=== PATIENT | female | born 1960 | race Caucasian/White ===

== ENCOUNTER 2018-06-27 23:02 | Emergency (ER) | payer MEDICAID ==
[~2018-06-27] VITALS: Ht 172.7 cm; Wt 60.6 kg
[2018-06-27 23:09] VITALS: BP 147/105
[2018-06-27] MEDS ORDERED: acetaminophen w/codeine (30MG) #3 tablet PO ONE (23:30)
[2018-06-27] MEDS ORDERED: ACET-3067 PO (23:57)
== END 2018-06-28 00:14 | disposition home or self-care (01) ==
LOC: ER 23:03
DX: S20.212A Contusion of left front wall of thorax, initial encounter (principal); Z88.0 Allergy status to penicillin; Z88.1 Allergy status to other antibiotic agents; Z90.710 Acquired absence of both cervix and uterus; W01.0XXA Fall on same level from slipping, tripping and stumbling without subsequent striking against object, initial encounter; Y93.89 Activity, other specified; Y92.89 Other specified places as the place of occurrence of the external cause; Y99.8 Other external cause status
CPT/HCPCS: 71101; 99284

== ENCOUNTER 2019-01-23 17:50 | Emergency (ER) | payer MEDICAID ==
[2019-01-23] MEDS ORDERED: FLUP5TAB PO (18:35)
[2019-01-23] MEDS ORDERED: OXCA300T16 PO (18:35)
[2019-01-23] MEDS ORDERED: RISP4TAB2 PO (18:35)
[2019-01-23] MEDS ORDERED: OXCA600T9 PO (18:35)
[2019-01-23] MEDS ORDERED: DOCU250C4 PO (18:35)
[2019-01-23] MEDS ORDERED: HYDR-3686 PO (20:02)
[2019-01-23 20:22] VITALS: BP 160/98
== END 2019-01-23 20:25 | disposition home or self-care (01) ==
LOC: ER 17:52
DX: F41.9 Anxiety disorder, unspecified (principal); F31.9 Bipolar disorder, unspecified; F20.9 Schizophrenia, unspecified; F17.200 Nicotine dependence, unspecified, uncomplicated; Z79.899 Other long term (current) drug therapy; Z88.0 Allergy status to penicillin; Z88.1 Allergy status to other antibiotic agents; Z88.6 Allergy status to analgesic agent; Z90.710 Acquired absence of both cervix and uterus
CPT/HCPCS: 99284

== ENCOUNTER 2019-03-06 20:54 | Emergency (ER) | payer MEDICAID ==
[~2019-03-06] VITALS: Ht 172.7 cm; Wt 63.0 kg
[~2019-03-06 20:54] MED LIST: DOCU250C4 PO; FLUP5TAB PO; OXCA300T16 PO; OXCA600T9 PO; RISP4TAB2 PO
[2019-03-06 21:20] VITALS: BP 160/100
[2019-03-06] MEDS ORDERED: sulfamethoxazole/trimethoprim DS (800/160mg) tablet PO ONE (22:05)
[2019-03-06] MEDS ORDERED: SULF1TAB49 PO (22:05)
== END 2019-03-06 22:18 | disposition home or self-care (01) ==
LOC: ER 20:55
DX: L03.032 Cellulitis of left toe (principal); Z90.710 Acquired absence of both cervix and uterus; Z88.0 Allergy status to penicillin; Z88.1 Allergy status to other antibiotic agents; Z88.6 Allergy status to analgesic agent; Z79.899 Other long term (current) drug therapy
CPT/HCPCS: 73610; 99284

== ENCOUNTER 2020-11-12 19:21 | Emergency (ER) | payer MEDICAID ==
[~2020-11-12] VITALS: Ht 172.7 cm; Wt 63.6 kg
[~2020-11-12 19:21] MED LIST changes: -DOCU250C4 PO; +DOCU250C96 PO; -FLUP5TAB PO; +FLUP5TAB4 PO; -RISP4TAB2 PO; +RISP4TAB73 PO
[2020-11-12 19:24] VITALS: BP 136/95
[2020-11-12] MEDS ORDERED: hydrOXYzine 10 MG tablet PO STA (19:48)
== END 2020-11-12 20:32 | disposition home or self-care (01) ==
LOC: ER 19:21
DX: F41.0 Panic disorder [episodic paroxysmal anxiety] (principal); F31.9 Bipolar disorder, unspecified; F20.9 Schizophrenia, unspecified; Z88.0 Allergy status to penicillin; Z88.1 Allergy status to other antibiotic agents; Z88.6 Allergy status to analgesic agent; Z79.899 Other long term (current) drug therapy
CPT/HCPCS: 99283

== ENCOUNTER 2021-06-14 09:48 | Emergency (ER) | payer MEDICAID ==
[~2021-06-14] VITALS: Ht 172.7 cm; Wt 65.9 kg
--- NOTE | 2021-06-14 11:11 | NUR ---
pt screaming in lobby. pt states she thirsty and hasnt drank water in 2 days. Showed pt where water fountain is. pt ambulated 50 feet without any assistance was able to drink water and then demanded to have medications. educated pt on waiting for a room and that she has her home medications with her.
--- NOTE | 2021-06-14 11:13 | NUR ---
Rosalva Lovett [phone], friend will pick her up
--- NOTE | 2021-06-14 11:54 | NUR ---
Pt is awake and alert. She has not taken her psych medications for 3 days. She is occationally tearful and is "worried that you will do something bad to me."
--- NOTE | 2021-06-14 12:18 | NUR ---
Pt repeats phrases rapidly over and over. "I feel scared."
--- NOTE | 2021-06-14 12:55 | NUR ---
Pt given instructions. Called her friend, Rosalva for a ride home.
[2021-06-14 13:15] VITALS: BP 110/81
== END 2021-06-14 13:16 | disposition home or self-care (01) ==
LOC: ER 09:49
DX: F41.9 Anxiety disorder, unspecified (principal); F20.9 Schizophrenia, unspecified; F31.9 Bipolar disorder, unspecified; Z90.710 Acquired absence of both cervix and uterus; Z88.0 Allergy status to penicillin; Z88.1 Allergy status to other antibiotic agents; Z88.8 Allergy status to other drugs, medicaments and biological substances; Z79.899 Other long term (current) drug therapy
CPT/HCPCS: 99283

== ENCOUNTER 2021-11-25 11:01 | Emergency (ER) | payer MEDICAID ==
[~2021-11-25] VITALS: Ht 172.7 cm; Wt 57.3 kg
[~2021-11-25 11:01] MED LIST changes: -DOCU250C96 PO; -OXCA600T9 PO
--- NOTE | 2021-11-25 11:52 | NUR ---
Patient's caregiver, Rosalva at bedside.
--- NOTE | 2021-11-25 12:54 | NUR ---
Patient's caregiver at bedside states patient appears to be having panic attack.
--- NOTE | 2021-11-25 12:54 | NUR ---
Patient moaning in bed and states abdomen hurts; ER provider notified.
--- NOTE | 2021-11-25 13:26 | NUR ---
Patient assisted to restroom; stating she feels "weak," however speed-walks with great strength to toilet when several feet away.
[2021-11-25] MEDS ORDERED: normal saline 1000ML IV soln IVB ONE ×2 (13:35→15:15)
[2021-11-25] MEDS ORDERED: ondansetron/PF 4mg/2ml inj IV ONE (13:35)
[2021-11-25 13:46] LABS: URINE HCG NEGATIVE (NEG)
[2021-11-25 13:50] LABS: CLARITY,URINE CLEAR (Clear); COLOR,URINE YELLOW (Yellow); GLUCOSE, URINE NEGATIVE (Neg); KETONES,URINE NEGATIVE (Neg); LEUKOCYTE ESTERASE ,URINE MODERATE (Neg); NITRITES, URINE NEGATIVE (Neg); OCCULT BLOOD,URINE NEGATIVE (Neg); PROTEIN,URINE NEGATIVE (Neg); UROBILINOGEN,URINE 0.2 E.U/dL (0.2-1.0)
[2021-11-25 14:00] LABS: UA COLLECTION TYPE NON-SPECIFIED
[2021-11-25] MEDS: morphine 4 MG/ML inj SYRINge IV PRN ×2 (14:00→17:27)
[2021-11-25 14:01] LABS: RBC,URINE NONE SEEN /HPF (0-2)
[2021-11-25 14:02] LABS: BACTERIA,URINE 2+ /HPF (Neg); MUCUS STRANDS FEW /LPF (Neg); SQUAMOUS EPITHELIAL CELL,UR MODERATE /LPF (FEW)
[2021-11-25 14:12] LABS: BASOPHILS % (AUTO) 0.3 % (0-1); EOSINOPHILS # (AUTO) 0.1 X10'3 (0-0.9); EOSINOPHILS % (AUTO) 0.9 % (0-6); HEMATOCRIT 40.9 % (35.0-45.0); HEMOGLOBIN 13.3 g/dl (12.0-16.0); LYMPHOCYTES # (AUTO) 2.4 X10'3 (1.1-4.8); LYMPHOCYTES % (AUTO) 35.9 % (21-51); MEAN CORPUSCULAR HEMOGLOBIN 31.5 PG (27.0-31.0); MEAN CORPUSCULAR HGB CONC 32.6 g/dL (33.0-36.5); MEAN CORPUSCULAR VOLUME 96.4 FL (78-98); MEAN PLATELET VOLUME 8.7 FL (7.4-10.4); MONOCYTES # (AUTO) 0.4 X10'3 (0-0.9); MONOCYTES % (AUTO) 6.6 % (2-12); NEUTROPHILS # (AUTO) 3.8 X10'3 (1.8-7.7); NEUTROPHILS % (AUTO) 56.3 % (42-75); PLATELET COUNT 225 X10'3 (140-440); RED BLOOD COUNT 4.24 X10'6 (4.20-5.60); RED CELL DISTRIBUTION WIDTH 13.9 % (11.5-14.5); WHITE BLOOD COUNT 6.7 X10'3 (4.5-11.0)
[2021-11-25 14:24] LABS: ALANINE AMINOTRANSFERASE 25 U/L (12-78); ALBUMIN/GLOBULIN RATIO 1.2 (1.1-1.5); ALKALINE PHOSPHATASE 137 IU/L (46-116); ANION GAP 12 (8-16); ASPARTATE AMINO TRANSFERASE 15 U/L (10-37); BILIRUBIN,TOTAL 0.2 MG/DL (0.1-1.0); BLOOD UREA NITROGEN 30 MG/DL (7-18); BUN/CREATININE RATIO 13.6 (6.6-38.0); CALCIUM 9.5 MG/DL (8.5-10.1); CHLORIDE 110 MMOL/L (99-107); GLUCOSE 101 MG/DL (70-104); LIPASE 219 U/L (73-393); POTASSIUM 4.4 MMOL/L (3.5-5.1); SODIUM 145 MMOL/L (135-145); TOTAL CARBON DIOXIDE 23.5 MMOL/L (24-32); TOTAL PROTEIN 7.4 G/DL (6.4-8.2); eGFR 23 ML/MIN
[2021-11-25] MEDS ORDERED: LORazepam 2 mg/ml vial IV ONE (16:25)
[2021-11-25] MEDS ORDERED: proCHLORperazine 10 MG/2 ml inj IV ONE (18:45)
[2021-11-25] MEDS ORDERED: oxcarbazepine 150mg tablet PO STA (19:01)
[2021-11-25 20:00] VITALS: BP 136/95
== END 2021-11-25 20:02 | disposition home or self-care (01) ==
LOC: ER 11:02
DX: R10.32 Left lower quadrant pain (principal); R30.0 Dysuria; E86.0 Dehydration; Z90.710 Acquired absence of both cervix and uterus; Z88.0 Allergy status to penicillin; Z88.1 Allergy status to other antibiotic agents; Z88.6 Allergy status to analgesic agent; Z79.899 Other long term (current) drug therapy
CPT/HCPCS: 36415; 80053; 81001; 81025; 83690; 85025; 87088; 93005; 96361; 96374; 96375; 96376; 99285; J0780; J2060; J2270; J2405; J7030; 99284

== ENCOUNTER 2022-02-05 13:42 | Emergency (ER) | payer MEDICAID ==
[~2022-02-05] VITALS: Ht 167.6 cm; Wt 60.0 kg
[~2022-02-05 13:42] MED LIST changes: +DIVA500T9 PO; -FLUP5TAB4 PO; -OXCA300T16 PO; +TRAZ-256 PO
[2022-02-05] MEDS ORDERED: quetiapine 100mg tablet PO STA (14:42)
[2022-02-05] MEDS ORDERED: OLANZapine 2.5MG tablet PO STA (14:42)
[2022-02-05] MEDS ORDERED: olanzapine 10mg tablet PO STA (14:52)
[2022-02-05 15:00] LABS: BASOPHILS % (AUTO) 0.3 % (0-1); EOSINOPHILS # (AUTO) 0.1 X10'3 (0-0.9); EOSINOPHILS % (AUTO) 2.2 % (0-6); HEMATOCRIT 30.5 % (35.0-45.0); LYMPHOCYTES # (AUTO) 1.8 X10'3 (1.1-4.8); LYMPHOCYTES % (AUTO) 28.2 % (21-51); MEAN CORPUSCULAR HEMOGLOBIN 30.8 PG (27.0-31.0); MEAN CORPUSCULAR HGB CONC 32.7 g/dL (33.0-36.5); MEAN CORPUSCULAR VOLUME 94.1 FL (78-98); MEAN PLATELET VOLUME 8.4 FL (7.4-10.4); MONOCYTES # (AUTO) 0.7 X10'3 (0-0.9); MONOCYTES % (AUTO) 10.1 % (2-12); NEUTROPHILS # (AUTO) 3.8 X10'3 (1.8-7.7); NEUTROPHILS % (AUTO) 59.2 % (42-75); PLATELET COUNT 201 X10'3 (140-440); RED BLOOD COUNT 3.24 X10'6 (4.20-5.60); RED CELL DISTRIBUTION WIDTH 13.6 % (11.5-14.5); WHITE BLOOD COUNT 6.5 X10'3 (4.5-11.0)
[2022-02-05 15:14] LABS: ALANINE AMINOTRANSFERASE 16 U/L (12-78); ALBUMIN 3.4 G/DL (3.4-5.0); ALKALINE PHOSPHATASE 129 IU/L (46-116); ANION GAP 4 (8-16); ASPARTATE AMINO TRANSFERASE 9 U/L (10-37); BILIRUBIN,TOTAL 0.3 MG/DL (0.1-1.0); BLOOD UREA NITROGEN 28 MG/DL (7-18); BUN/CREATININE RATIO 14.7 (6.6-38.0); CALCIUM 8.8 MG/DL (8.5-10.1); CHLORIDE 108 MMOL/L (99-107); CREATININE 1.91 MG/DL (0.40-0.90); ETHANOL < 0.010 GM/DL (0.0-0.010); GLUCOSE 104 MG/DL (70-104); POTASSIUM 3.9 MMOL/L (3.5-5.1); SODIUM 137 MMOL/L (135-145); TOTAL CARBON DIOXIDE 25.1 MMOL/L (24-32); TOTAL PROTEIN 6.7 G/DL (6.4-8.2); eGFR 27 ML/MIN
[2022-02-05] MEDS ORDERED: TRAZ-251 PO (15:21)
[2022-02-05] MEDS ORDERED: ARIP5TAB14 PO (15:21)
[2022-02-05] MEDS ORDERED: DIVA500T9 PO (15:21)
[2022-02-05] MEDS ORDERED: RISP2TAB85 PO (15:21)
--- NOTE | 2022-02-05 15:32 | NUR ---
Patient talking to anyone who will listen. "I need to get out of here! I didn't do anything wrong!" Continue to monitor.
[2022-02-05 15:53] LABS: CLARITY,URINE CLEAR (Clear); COLOR,URINE YELLOW (Yellow); GLUCOSE, URINE NEGATIVE (Neg); KETONES,URINE NEGATIVE (Neg); LEUKOCYTE ESTERASE ,URINE SMALL (Neg); NITRITES, URINE NEGATIVE (Neg); OCCULT BLOOD,URINE TRACE-LYSED (Neg); PROTEIN,URINE NEGATIVE (Neg); UROBILINOGEN,URINE 0.2 E.U/dL (0.2-1.0)
[2022-02-05 15:54] LABS: UA COLLECTION TYPE NON-SPECIFIED
[2022-02-05 16:15] LABS: BACTERIA,URINE NONE SEEN /HPF (Neg); RBC,URINE 0-2 /HPF (0-2); SQUAMOUS EPITHELIAL CELL,UR MODERATE /LPF (FEW); WBC,URINE NONE SEEN /HPF (0-4)
[2022-02-05 16:16] LABS: URINE AMPHETAMINE SCREEN NEGATIVE (Neg); URINE BARBITUATE SCREEN NEGATIVE (Neg); URINE BENZODIAZEPINES SCREEN NEGATIVE (Neg); URINE CANNABINOID SCREEN NEGATIVE (Neg); URINE COCAINE SCREEN NEGATIVE (Neg); URINE METHADONE SCREEN NEGATIVE (Neg); URINE OPIATE SCREEN NEGATIVE (Neg); URINE PHENCYCLIDINE SCREEN NEGATIVE (Neg)
--- NOTE | 2022-02-05 16:20 | NUR ---
Patient is upset she is here and is complaining loudly. Patient states she is going home.
--- NOTE | 2022-02-05 16:55 | NUR ---
Patient fell asleep in bed. No distress observed. Continue to monitor.
--- NOTE | 2022-02-05 19:43 | NUR ---
The patient is easily agitated when talking on the phone. She has very poor insight and wants to go home. She feels she did nothing wrong. She was made aware that she will be going to [facility] tomorrow.
[2022-02-05] MEDS: divalproex sod 250mg ER (24-hour) tablet PO SCH ×2 (20:05→21:30)
[2022-02-05] MEDS: risperiDONE 2mg tablet PO SCH ×2 (20:05→21:30)
[2022-02-05] MEDS: traZODone 50mg tablet PO SCH ×2 (20:05→21:30)
--- NOTE | 2022-02-05 20:29 | NUR ---
The patient is resting on her bed.
--- NOTE | 2022-02-05 22:50 | NUR ---
The patient appears to be sleeping
--- NOTE | 2022-02-06 01:23 | NUR ---
The patient is awake and calling out for staff
[2022-02-06] MEDS ORDERED: acetaminophen 325mg tablet PO ONE (01:35)
--- NOTE | 2022-02-06 01:47 | NUR ---
The patient is awake and being disruptive to sleeping peers. She is calling out for staff from her bed. She is complaining of pain and MD made aware and orders received for tylenol.
--- NOTE | 2022-02-06 04:07 | NUR ---
The patient is awake and restless
[2022-02-06 05:12] VITALS: BP 127/82
--- NOTE | 2022-02-06 05:17 | NUR ---
The patient is awake and periodically calling out to staff from her bed
--- NOTE | 2022-02-06 06:54 | NUR ---
Patient was up and being loud so RN called Security for a stand by. They spoke with patient to be quieter and patient complied. Patient is not sitting on the side of her bed. Continue to monitor.
[2022-02-06 07:15] LABS: VALPROATE 48 UG/ML (50-100)
[2022-02-06] MEDS ORDERED: aripiprazole 5mg tablet PO SCH (08:00)
--- NOTE | 2022-02-06 08:10 | NUR ---
Patient is still non-stop talking but is eating her breakfast. Continue to monitor.
== END 2022-02-06 08:50 ==
LOC: ER 13:43
DX: F20.9 Schizophrenia, unspecified (principal); Z20.822 Contact with and (suspected) exposure to COVID-19; F31.9 Bipolar disorder, unspecified; R45.1 Restlessness and agitation; F41.9 Anxiety disorder, unspecified; Z90.710 Acquired absence of both cervix and uterus; Z88.0 Allergy status to penicillin; Z88.1 Allergy status to other antibiotic agents; Z88.8 Allergy status to other drugs, medicaments and biological substances; Z79.899 Other long term (current) drug therapy
CPT/HCPCS: 36415; 80053; 80164; 80305; 80320; 81001; 85025; 87635; 99285; C9803

== ENCOUNTER 2022-06-25 07:59 | Emergency (ER) | payer MEDICAID ==
[~2022-06-25] VITALS: Ht 175.3 cm; Wt 50.0 kg
[~2022-06-25 07:59] MED LIST changes: +ASCO1000 PO; +CHOL50004 PO; +CLON-528 PO; -DIVA500T9 PO; +RISP3TAB63 PO; -RISP4TAB73 PO
[2022-06-25 09:50] LABS: BASOPHILS % (AUTO) 0.4 % (0-1); EOSINOPHILS # (AUTO) 0.1 X10'3 (0-0.9); EOSINOPHILS % (AUTO) 1.4 % (0-6); HEMATOCRIT 38.4 % (35.0-45.0); LYMPHOCYTES # (AUTO) 1.8 X10'3 (1.1-4.8); LYMPHOCYTES % (AUTO) 30.5 % (21-51); MEAN CORPUSCULAR HEMOGLOBIN 30.9 PG (27.0-31.0); MEAN CORPUSCULAR HGB CONC 33.8 g/dL (33.0-36.5); MEAN CORPUSCULAR VOLUME 91.3 FL (78-98); MEAN PLATELET VOLUME 8.6 FL (7.4-10.4); MONOCYTES # (AUTO) 0.4 X10'3 (0-0.9); MONOCYTES % (AUTO) 7.4 % (2-12); NEUTROPHILS # (AUTO) 3.6 X10'3 (1.8-7.7); NEUTROPHILS % (AUTO) 60.3 % (42-75); PLATELET COUNT 180 X10'3 (140-440); RED CELL DISTRIBUTION WIDTH 14.4 % (11.5-14.5)
[2022-06-25 10:00] LABS: ALANINE AMINOTRANSFERASE 12 U/L (12-78); ALBUMIN 4.4 G/DL (3.4-5.0); ALBUMIN/GLOBULIN RATIO 1.3 (1.1-1.5); ALKALINE PHOSPHATASE 126 IU/L (46-116); ANION GAP 10 (8-16); ASPARTATE AMINO TRANSFERASE 10 U/L (10-37); BILIRUBIN,TOTAL 0.3 MG/DL (0.1-1.0); BLOOD UREA NITROGEN 20 MG/DL (7-18); BUN/CREATININE RATIO 8.3 (6.6-38.0); CHLORIDE 108 MMOL/L (99-107); GLUCOSE 94 MG/DL (70-104); POTASSIUM 4.1 MMOL/L (3.5-5.1); SODIUM 144 MMOL/L (135-145); TOTAL CARBON DIOXIDE 26.2 MMOL/L (24-32); TOTAL PROTEIN 7.8 G/DL (6.4-8.2); eGFR 21 ML/MIN
[2022-06-25 10:04] LABS: ACETAMINOPHEN < 2.0 UG/ML (10-30); ETHANOL < 0.010 GM/DL (0.0-0.010)
[2022-06-25 11:46] LABS: URINE HCG NEGATIVE (NEG)
[2022-06-25 11:55] LABS: URINE AMPHETAMINE SCREEN NEGATIVE (Neg); URINE BARBITUATE SCREEN NEGATIVE (Neg); URINE BENZODIAZEPINES SCREEN NEGATIVE (Neg); URINE CANNABINOID SCREEN NEGATIVE (Neg); URINE COCAINE SCREEN NEGATIVE (Neg); URINE METHADONE SCREEN NEGATIVE (Neg); URINE OPIATE SCREEN NEGATIVE (Neg); URINE PHENCYCLIDINE SCREEN NEGATIVE (Neg)
--- NOTE | 2022-06-25 12:32 | NUR ---
Patient transferred to bed 23 from bed 8. Patient is not wanting to get dressed in scrubs or hand over her belongings and takes much prompting and redirection.
[2022-06-25] MEDS ORDERED: TRAZ150T78 PO (13:05)
[2022-06-25] MEDS ORDERED: RISP3TAB11 PO (13:05)
[2022-06-25] MEDS ORDERED: CLON-528 PO ×2 (13:05)
--- NOTE | 2022-06-25 13:26 | NUR ---
Patient at nursing station complaining about her . Crying intermittently. Patient states that she has been hospitalized more than 15 times in her life.
[2022-06-25] MEDS ORDERED: clonazePAM 0.5mg tablet PO PRN (14:01)
--- NOTE | 2022-06-25 15:21 | NUR ---
Patient has been hyperverbal during the shift. Administered 0.5 mg Klonopin and now is sleeping.
--- NOTE | 2022-06-25 17:26 | NUR ---
Joao Sylvester called for nurse to nurse. He will present to provider.
[2022-06-25 18:16] LABS: CLARITY,URINE CLEAR (Clear); COLOR,URINE YELLOW (Yellow); GLUCOSE, URINE NEGATIVE (Neg); KETONES,URINE NEGATIVE (Neg); LEUKOCYTE ESTERASE ,URINE TRACE (Neg); NITRITES, URINE NEGATIVE (Neg); OCCULT BLOOD,URINE NEGATIVE (Neg); PH,URINE 5.5 (4.8-8.0); PROTEIN,URINE NEGATIVE (Neg); UROBILINOGEN,URINE 0.2 E.U/dL (0.2-1.0)
[2022-06-25 18:17] LABS: UA COLLECTION TYPE CLN CATCH MIDSTREAM
[2022-06-25 18:27] LABS: RBC,URINE NONE SEEN /HPF (0-2); SQUAMOUS EPITHELIAL CELL,UR MANY /LPF (FEW)
[2022-06-25 18:28] LABS: BACTERIA,URINE 1+ /HPF (Neg)
--- NOTE | 2022-06-25 18:43 | NUR ---
The patient has been resting on her bed. When asked why she was here she stated because she fell. She is pleasant but intrussive and needy with staff. She is unable to explain why she is on a 5150 hold. Psychotic symptoms, SI and DTO are all denied.
--- NOTE | 2022-06-25 20:17 | NUR ---
The patient is resting on her bed quietly but awake
[2022-06-25] MEDS ORDERED: clonazePAM 0.5mg tablet PO SCH (21:00)
[2022-06-25] MEDS ORDERED: traZODone 50mg tablet PO SCH (21:00)
[2022-06-25] MEDS ORDERED: risperiDONE 2mg tablet PO SCH (21:00)
--- NOTE | 2022-06-25 22:54 | NUR ---
The patient appears to be sleeping
--- NOTE | 2022-06-26 00:12 | NUR ---
The patient appears to be sleeping
--- NOTE | 2022-06-26 02:02 | NUR ---
The patient appears to be sleeping
--- NOTE | 2022-06-26 04:07 | NUR ---
The patient appears to be sleeping
--- NOTE | 2022-06-26 05:43 | NUR ---
The patient appeared to have slept well during the night
[2022-06-26 05:53] VITALS: BP 104/69
--- NOTE | 2022-06-26 08:11 | NUR ---
BREAKFAST TRAY GIVEN TO PATIENT.
--- NOTE | 2022-06-26 12:10 | NUR ---
Krysten BENJAMIN from [facility] called for a nurse to nurse. Needs U/A and covid test faxed over.. Sent to number given. [phone]
--- NOTE | 2022-06-26 12:26 | NUR ---
Higinio saez called again regarding the U/A and ARPITA and was wanting treatment for the U/A and ARPITA as well a a urine culture before accepting pt.
--- NOTE | 2022-06-26 12:58 | NUR ---
[facility] called requesting covid vaccine results be sent to them before excepting pt. faxed over to [phone]
--- NOTE | 2022-06-26 14:11 | NUR ---
Nurse to Nurse report Called to Farzaneh BENJAMIN at [facility]. Pt accepted by Dr. Harvey [phone]. Pt to be transported by [facility] supervisor picking crew around 0568.
== END 2022-06-26 16:13 ==
LOC: ER 08:00
DX: F31.9 Bipolar disorder, unspecified (principal); Z20.822 Contact with and (suspected) exposure to COVID-19; Z88.0 Allergy status to penicillin; F20.9 Schizophrenia, unspecified; Z90.49 Acquired absence of other specified parts of digestive tract; Z88.8 Allergy status to other drugs, medicaments and biological substances; Z88.6 Allergy status to analgesic agent
CPT/HCPCS: 36415; 70450; 80053; 80305; 80320; 80329; 81001; 81025; 85025; 87635; 99285; C9803

== ENCOUNTER 2022-11-21 11:05 | Emergency (ER) | payer MEDICAID ==
[~2022-11-21] VITALS: Ht 172.7 cm; Wt 67.7 kg
[~2022-11-21 11:05] MED LIST changes: -ASCO1000 PO; -CHOL50004 PO; +RISP3TAB11 PO; -RISP3TAB63 PO; -TRAZ-256 PO; +TRAZ150T78 PO
[2022-11-21 11:13] VITALS: BP 102/75
== END 2022-11-21 13:08 | disposition home or self-care (01) ==
LOC: ER 11:05
DX: M25.512 Pain in left shoulder (principal); F31.9 Bipolar disorder, unspecified; F20.9 Schizophrenia, unspecified; Z90.49 Acquired absence of other specified parts of digestive tract; Z88.0 Allergy status to penicillin; Z88.1 Allergy status to other antibiotic agents; Z79.899 Other long term (current) drug therapy; Z88.6 Allergy status to analgesic agent
CPT/HCPCS: 73030; 99284

== ENCOUNTER 2023-05-17 17:18 | Emergency (ER) | payer MEDICAID ==
[~2023-05-17] VITALS: Ht 172.7 cm; Wt 53.4 kg
[2023-05-17 17:23] VITALS: BP 151/81; PULSE 111; RESP 16; TEMP 100.2; O2SAT 98
== END 2023-05-17 21:22 | disposition left against medical advice (07) ==
LOC: ER 17:20
DX: M25.531 Pain in right wrist (principal); Z53.21 Procedure and treatment not carried out due to patient leaving prior to being seen by health care provider
CPT/HCPCS: 99281

== ENCOUNTER 2023-05-18 16:36 | Inpatient (IN) | payer MEDICAID ==
[~2023-05-18] VITALS: Ht 172.7 cm; Wt 58.6 kg
[2023-05-18] MEDS ORDERED: acetaminophen 325mg tablet PO ONE (16:50)
[2023-05-18 17:30] LABS: BASOPHILS % (AUTO) 0.1 % (0-1); EOSINOPHILS % (AUTO) 0 % (0-6); HEMOGLOBIN 11.5 g/dl (12.0-16.0); LYMPHOCYTES # (AUTO) 0.9 X10'3 (1.1-4.8); LYMPHOCYTES % (AUTO) 5.7 % (21-51); MEAN CORPUSCULAR HEMOGLOBIN 32.1 PG (27.0-31.0); MEAN CORPUSCULAR HGB CONC 32.8 g/dL (33.0-36.5); MEAN CORPUSCULAR VOLUME 97.9 FL (78-98); MEAN PLATELET VOLUME 9.2 FL (7.4-10.4); MONOCYTES # (AUTO) 1.2 X10'3 (0-0.9); MONOCYTES % (AUTO) 7.7 % (2-12); NEUTROPHILS % (AUTO) 86.5 % (42-75); PLATELET COUNT 149 X10'3 (140-440); RED BLOOD COUNT 3.58 X10'6 (4.20-5.60); RED CELL DISTRIBUTION WIDTH 13.9 % (11.5-14.5); WHITE BLOOD COUNT 16.2 X10'3 (4.5-11.0)
[2023-05-18 17:45] LABS: ALANINE AMINOTRANSFERASE 16 U/L (12-78); ALBUMIN/GLOBULIN RATIO 0.7 (1.1-1.5); ALKALINE PHOSPHATASE 88 IU/L (46-116); ANION GAP 12 (8-16); ASPARTATE AMINO TRANSFERASE 21 U/L (10-37); BILIRUBIN,TOTAL 0.3 MG/DL (0.1-1.0); BLOOD UREA NITROGEN 27 MG/DL (7-18); BUN/CREATININE RATIO 10.2 (10.0-20.0); CALCIUM 9.7 MG/DL (8.5-10.1); CHLORIDE 104 MMOL/L (99-107); CREATININE 2.66 MG/DL (0.40-0.90); GLUCOSE 128 MG/DL (70-104); POTASSIUM 3.5 MMOL/L (3.5-5.1); SODIUM 139 MMOL/L (135-145); TOTAL CARBON DIOXIDE 22.9 MMOL/L (24-32); TOTAL PROTEIN 7.1 G/DL (6.4-8.2); eCRCL 21 ML/MIN; eGFR 18 ML/MIN
[2023-05-18] MEDS ORDERED: morphine 4 MG/ML inj SYRINge IV ONE (17:50)
[2023-05-18 17:55] LABS: THYROID STIMULATING HORMONE 1.09 ulU/ml (0.34-4.50)
[2023-05-18] MEDS ORDERED: diphenhydrAMINE 50 mg/ml inj IM ONE (18:10)
[2023-05-18] MEDS ORDERED: haloperidol lactate 5mg/ml inj IM ONE (18:10)
[2023-05-18 18:24] LABS: ETHANOL < 10 MG/DL (<10)
[2023-05-18] MEDS ORDERED: cefoxitin sod inj 2,000 MG in normal saline 100ml IV soln 100 ML IV ONE (18:45)
[2023-05-18] MEDS ORDERED: vancomycin inj 500 MG in normal saline 100ml IV soln 100 ML IV ONE (19:00)
[2023-05-18] MEDS ORDERED: normal saline 1000ML IV soln IVB ONE (20:50)
[2023-05-18] MEDS ORDERED: ondansetron/PF 4mg/2ml inj IV PRN (21:30)
[2023-05-18] MEDS ORDERED: magnesium hydroxide 30ml (MOM) UD suspension PO PRN (21:30)
[2023-05-18] MEDS ORDERED: mag hydrox/Alum hydrox/simeth 30ml oral suspension PO PRN (21:30)
[2023-05-18] MEDS ORDERED: potassium Cl 20 mEq SR tablet PO PRN ×2 (21:30)
[2023-05-18] MEDS ORDERED: magnesium 2GM in 50ml NS 50 ML IV PRN (21:30)
[2023-05-18] MEDS ORDERED: potassium Cl 40MEQ/1/2NS 520ml 520 ML IV PRN (21:30)
[2023-05-18] MEDS ORDERED: HYDROcodone/acetaminophen 5mg/325mg tablet PO PRN (21:30)
[2023-05-18] MEDS ORDERED: magnesium 4gm in 100ml NS 100 ML IV PRN (21:30)
[2023-05-18] MEDS ORDERED: magnesium Cl slow-release 64mg tablet PO PRN (21:30)
[2023-05-19] MEDS ORDERED: LORazepam 2 mg/ml vial IM ONE (02:30)
[2023-05-19] MEDS ORDERED: haloperidol lactate 5mg/ml inj IM ONE (02:30)
[2023-05-19] MEDS: clindamycin 300mg/D5W 50mL 50 ML IV SCH ×4 (03:26→22:35)
[2023-05-19 07:39] LABS: ALANINE AMINOTRANSFERASE 20 U/L (12-78); ALBUMIN 2.6 G/DL (3.4-5.0); ALBUMIN/GLOBULIN RATIO 0.6 (1.1-1.5); ALKALINE PHOSPHATASE 78 IU/L (46-116); ANION GAP 14 (8-16); ASPARTATE AMINO TRANSFERASE 35 U/L (10-37); BILIRUBIN,TOTAL 0.5 MG/DL (0.1-1.0); BLOOD UREA NITROGEN 33 MG/DL (7-18); BUN/CREATININE RATIO 11.3 (10.0-20.0); CALCIUM 9.9 MG/DL (8.5-10.1); CHLORIDE 110 MMOL/L (99-107); CREATININE 2.92 MG/DL (0.40-0.90); GLUCOSE 115 MG/DL (70-104); MAGNESIUM 1.8 MG/DL (1.5-2.4); SODIUM 144 MMOL/L (135-145); TOTAL CARBON DIOXIDE 19.9 MMOL/L (24-32); TOTAL PROTEIN 6.7 G/DL (6.4-8.2); eCRCL 19 ML/MIN; eGFR 16 ML/MIN
[2023-05-19] MEDS: clonazePAM 0.5mg tablet PO SCH ×2 (08:00→19:28)
[2023-05-19] MEDS: K and/or MAG REPLACEMENT MC SCH ×2 (08:00→19:28)
[2023-05-19] MEDS: heparin, porcine 5000 units/ml vial SQ SCH ×2 (08:00→19:29)
[2023-05-19] MEDS ORDERED: ARIPIPRAZOLE 10 MG TABLET PO SCH (08:00)
[2023-05-19] MEDS: docusate sod 100mg capsule PO SCH ×2 (08:00→19:27)
[2023-05-19 08:20] LABS: POTASSIUM 4.1 MMOL/L (3.5-5.1)
[2023-05-19] MEDS ORDERED: cefepime 1GM/NS ADD-VANTAGE 100 ML IV SCH (08:30)
[2023-05-19] MEDS: acetaminophen 325mg tablet PO PRN (08:33)
[2023-05-19] MEDS ORDERED: normal saline 500ml IV soln 500 ML IV ONE (08:35)
[2023-05-19 09:06] LABS: BASOPHILS % (AUTO) 0.2 % (0-1); EOSINOPHILS % (AUTO) 0 % (0-6); HEMATOCRIT 29.1 % (35.0-45.0); HEMOGLOBIN 9.7 g/dl (12.0-16.0); LYMPHOCYTES # (AUTO) 0.6 X10'3 (1.1-4.8); MEAN CORPUSCULAR HEMOGLOBIN 32.4 PG (27.0-31.0); MEAN CORPUSCULAR HGB CONC 33.4 g/dL (33.0-36.5); MEAN CORPUSCULAR VOLUME 97.2 FL (78-98); MEAN PLATELET VOLUME 9.2 FL (7.4-10.4); MONOCYTES # (AUTO) 0.8 X10'3 (0-0.9); MONOCYTES % (AUTO) 7.9 % (2-12); NEUTROPHILS # (AUTO) 8.8 X10'3 (1.8-7.7); NEUTROPHILS % (AUTO) 85.9 % (42-75); PLATELET COUNT 108 X10'3 (140-440); RED BLOOD COUNT 2.99 X10'6 (4.20-5.60); RED CELL DISTRIBUTION WIDTH 13.5 % (11.5-14.5); WHITE BLOOD COUNT 10.3 X10'3 (4.5-11.0)
[2023-05-19] MEDS: normal saline 1000ml 1,000 ML IV SCH ×2 (09:33→18:41)
[2023-05-19] MEDS: cefepime 1GM/NS ADD-VANTAGE 100 ML IV SCH ×2 (12:31→20:38)
[2023-05-19] MEDS ORDERED: vancomycin/NS 1 GM ADD-VANTAGE 250 ML X 1 DOSE IV PRN (13:05)
[2023-05-19] MEDS ORDERED: vancomycin inj 500 MG in normal saline 100ml IV soln 100 ML IV ONE (13:30)
[2023-05-19] MEDS ORDERED: ARIP10TA57 PO (14:53)
[2023-05-19] MEDS ORDERED: HYDR-3686 PO (14:54)
[2023-05-19] MEDS ORDERED: DIVA500T9 PO (14:54)
[2023-05-19] MEDS ORDERED: TRAZ-256 PO (14:56)
[2023-05-19] MEDS ORDERED: RISP2TAB85 PO (14:56)
[2023-05-19] MEDS ORDERED: ACET-2006 PO (14:57)
[2023-05-19] MEDS ORDERED: traZODone 50mg tablet PO PRN (17:30)
[2023-05-19] MEDS ORDERED: hydrOXYzine 25 MG tablet PO PRN (17:30)
[2023-05-19] MEDS: divalproex sod 250mg ER (24-hour) tablet PO SCH (19:48)
[2023-05-19] MEDS: ARIPIPRAZOLE 10 MG TABLET PO SCH (19:48)
[2023-05-19] MEDS: risperiDONE 2mg tablet PO SCH (21:00)
[2023-05-19] MEDS: sodium bicarbonate (8.4%) inj. 100 MEQ in dextrose 5%-water 1,000 ML IV SCH (21:45)
[2023-05-20 01:39] LABS: URINE HCG NEGATIVE (NEG)
[2023-05-20 01:43] LABS: BILIRUBIN,URINE NEGATIVE (Neg); CLARITY,URINE CLEAR (Clear); COLOR,URINE YELLOW (Yellow); GLUCOSE, URINE NEGATIVE (Neg); KETONES,URINE NEGATIVE (Neg); LEUKOCYTE ESTERASE ,URINE NEGATIVE (Neg); NITRITES, URINE NEGATIVE (Neg); OCCULT BLOOD,URINE SMALL (Neg); PROTEIN,URINE 30 mg/dl (Neg); UROBILINOGEN,URINE 0.2 E.U/dL (0.2-1.0)
[2023-05-20 01:45] LABS: UA COLLECTION TYPE OTHER
[2023-05-20 01:47] LABS: SQUAMOUS EPITHELIAL CELL,UR FEW /LPF (FEW); URINE AMPHETAMINE SCREEN NEGATIVE (Neg); URINE BARBITUATE SCREEN NEGATIVE (Neg); URINE BENZODIAZEPINES SCREEN NEGATIVE (Neg); URINE CANNABINOID SCREEN NEGATIVE (Neg); URINE COCAINE SCREEN NEGATIVE (Neg); URINE METHADONE SCREEN NEGATIVE (Neg); URINE OPIATE SCREEN NEGATIVE (Neg); URINE PHENCYCLIDINE SCREEN NEGATIVE (Neg)
[2023-05-20 01:48] LABS: BACTERIA,URINE FEW /HPF (Neg); RBC,URINE 0-2 /HPF (0-2); TRANSITIONAL EPI CELLS,URINE FEW /HPF; WBC,URINE 0-4 /HPF (0-4)
[2023-05-20] MEDS: clindamycin 300mg/D5W 50mL 50 ML IV SCH ×4 (02:53→20:00)
[2023-05-20] MEDS: VANCOMYCIN LEVEL IV SCH (03:00)
[2023-05-20] MEDS: cefepime 1GM/NS ADD-VANTAGE 100 ML IV SCH ×2 (07:00→12:36)
[2023-05-20] MEDS: heparin, porcine 5000 units/ml vial SQ SCH ×2 (08:00→20:00)
[2023-05-20] MEDS: docusate sod 100mg capsule PO SCH ×2 (08:00→20:00)
[2023-05-20] MEDS: clonazePAM 0.5mg tablet PO SCH ×2 (08:00→20:00)
[2023-05-20] MEDS: K and/or MAG REPLACEMENT MC SCH ×2 (08:00→20:00)
[2023-05-20] MEDS: divalproex sod 250mg ER (24-hour) tablet PO SCH ×2 (08:00→21:01)
[2023-05-20] MEDS: sodium bicarbonate (8.4%) inj. 100 MEQ in dextrose 5%-water 1,000 ML IV SCH ×2 (08:45→15:03)
[2023-05-20 08:47] VITALS: BP 133/85; PULSE 88; RESP 24; TEMP 97.7; O2SAT 98
[2023-05-20] MEDS: ARIPIPRAZOLE 10 MG TABLET PO SCH ×2 (10:37→20:00)
[2023-05-20] MEDS: acetaminophen 325mg tablet PO PRN ×3 (10:37→23:35)
[2023-05-20] MEDS ORDERED: MULT-1085 PO (11:45)
[2023-05-20] MEDS ORDERED: ARIP10TA57 PO (11:46)
[2023-05-20 15:20] VITALS: BP 106/58; PULSE 86; RESP 18; TEMP 98.6; O2SAT 97
[2023-05-20 18:00] VITALS: BP 98/71; PULSE 99; RESP 15; TEMP 97.7; O2SAT 98
[2023-05-20 20:00] VITALS: RESP 16; O2SAT 98
[2023-05-20] MEDS: risperiDONE 2mg tablet PO SCH (21:00)
[2023-05-20 22:00] VITALS: BP 113/81; PULSE 97; RESP 17; TEMP 97; O2SAT 100
[2023-05-21 02:00] VITALS: BP 108/74; PULSE 97; RESP 16; TEMP 97.8; O2SAT 99
[2023-05-21] MEDS: clindamycin 300mg/D5W 50mL 50 ML IV SCH ×2 (02:00→07:18)
[2023-05-21] MEDS: VANCOMYCIN LEVEL IV SCH (06:31)
[2023-05-21] MEDS: acetaminophen 325mg tablet PO PRN ×3 (07:18→23:48)
[2023-05-21] MEDS: ARIPIPRAZOLE 10 MG TABLET PO SCH ×2 (07:19→20:31)
[2023-05-21 07:36] VITALS: BP 109/77; PULSE 85; RESP 20; O2SAT 95
[2023-05-21] MEDS: divalproex sod 250mg ER (24-hour) tablet PO SCH ×2 (08:00→20:30)
[2023-05-21] MEDS: heparin, porcine 5000 units/ml vial SQ SCH ×2 (08:00→20:00)
[2023-05-21] MEDS: K and/or MAG REPLACEMENT MC SCH ×2 (08:00→20:00)
[2023-05-21] MEDS: docusate sod 100mg capsule PO SCH ×2 (08:00→20:00)
[2023-05-21] MEDS: clonazePAM 0.5mg tablet PO SCH ×2 (08:00→20:00)
[2023-05-21 08:53] VITALS: RESP 20; O2SAT 95
[2023-05-21 09:26] LABS: BASOPHILS % (AUTO) 0.3 % (0-1); EOSINOPHILS # (AUTO) 0.1 X10'3 (0-0.9); EOSINOPHILS % (AUTO) 1.3 % (0-6); HEMATOCRIT 33.4 % (35.0-45.0); LYMPHOCYTES % (AUTO) 10.8 % (21-51); MEAN CORPUSCULAR HEMOGLOBIN 31.8 PG (27.0-31.0); MEAN CORPUSCULAR HGB CONC 32.8 g/dL (33.0-36.5); MEAN CORPUSCULAR VOLUME 96.9 FL (78-98); MEAN PLATELET VOLUME 9.9 FL (7.4-10.4); MONOCYTES # (AUTO) 0.8 X10'3 (0-0.9); MONOCYTES % (AUTO) 7.8 % (2-12); NEUTROPHILS # (AUTO) 7.7 X10'3 (1.8-7.7); NEUTROPHILS % (AUTO) 79.8 % (42-75); PLATELET COUNT 140 X10'3 (140-440); RED BLOOD COUNT 3.44 X10'6 (4.20-5.60); RED CELL DISTRIBUTION WIDTH 13.9 % (11.5-14.5); WHITE BLOOD COUNT 9.7 X10'3 (4.5-11.0)
[2023-05-21 09:37] LABS: ALANINE AMINOTRANSFERASE 44 U/L (12-78); ALBUMIN/GLOBULIN RATIO 0.5 (1.1-1.5); ALKALINE PHOSPHATASE 108 IU/L (46-116); ANION GAP 6 (8-16); ASPARTATE AMINO TRANSFERASE 43 U/L (10-37); BILIRUBIN,TOTAL 0.3 MG/DL (0.1-1.0); BLOOD UREA NITROGEN 55 MG/DL (7-18); BUN/CREATININE RATIO 22.5 (10.0-20.0); CALCIUM 9.9 MG/DL (8.5-10.1); CHLORIDE 109 MMOL/L (99-107); CREATININE 2.44 MG/DL (0.40-0.90); GLUCOSE 127 MG/DL (70-104); POTASSIUM 4.6 MMOL/L (3.5-5.1); SODIUM 140 MMOL/L (135-145); TOTAL CARBON DIOXIDE 25.2 MMOL/L (24-32); VANCOMYCIN,RANDOM 5.6 ug/mL (20.0-30.0); eCRCL 23 ML/MIN; eGFR 20 ML/MIN
[2023-05-21] MEDS ORDERED: vancomycin/NS 1 GM ADD-VANTAGE 250 ML X 1 DOSE IV ONE (09:50)
[2023-05-21] MEDS: cefepime 1GM/NS ADD-VANTAGE 100 ML IV SCH (12:00)
[2023-05-21] MEDS: clindamycin 150mg capsule PO SCH ×2 (13:41→20:31)
[2023-05-21] MEDS: linezolid 600mg tablet PO SCH ×2 (13:41→20:31)
[2023-05-21 15:00] VITALS: BP 117/81; PULSE 88; RESP 18; TEMP 98.3; O2SAT 100
[2023-05-21] MEDS ORDERED: VANCOMYCIN LEVEL IV ONE (19:30)
[2023-05-21] MEDS: risperiDONE 2mg tablet PO SCH (21:00)
[2023-05-22] MEDS: VANCOMYCIN LEVEL IV SCH (03:00)
[2023-05-22] MEDS: clindamycin 150mg capsule PO SCH ×3 (03:12→13:49)
[2023-05-22 03:18] VITALS: BP 112/80; PULSE 98; TEMP 97.5; O2SAT 98
[2023-05-22 08:00] VITALS: RESP 14; O2SAT 95
[2023-05-22] MEDS: heparin, porcine 5000 units/ml vial SQ SCH (08:00)
[2023-05-22] MEDS: divalproex sod 250mg ER (24-hour) tablet PO SCH (08:00)
[2023-05-22] MEDS: K and/or MAG REPLACEMENT MC SCH (08:00)
[2023-05-22] MEDS: docusate sod 100mg capsule PO SCH (08:00)
[2023-05-22] MEDS: ARIPIPRAZOLE 10 MG TABLET PO SCH (08:27)
[2023-05-22] MEDS: linezolid 600mg tablet PO SCH (08:28)
[2023-05-22] MEDS: clonazePAM 0.5mg tablet PO SCH (08:28)
[2023-05-22] MEDS: acetaminophen 325mg tablet PO PRN (08:49)
[2023-05-22 11:00] VITALS: BP 130/78; PULSE 84; RESP 14; TEMP 97.9; O2SAT 100
[2023-05-22] MEDS: cefepime 1GM/NS ADD-VANTAGE 100 ML IV SCH (12:00)
[2023-05-22 15:00] VITALS: BP 135/84; PULSE 91; RESP 18; TEMP 96.8; O2SAT 100
[2023-05-22] MEDS ORDERED: CLON-565 PO (15:13)
[2023-05-22] MEDS ORDERED: LINE600T14 PO (15:13)
== END 2023-05-22 17:24 | DRG 720 ==
LOC: ER 16:36 → ED HOLD 21:30 → PCU 3S 05-20 07:59
PROVIDERS: ADMIT Internal Medicine; ATTEND Family Medicine
DX: A41.9 Sepsis, unspecified organism (principal); N17.0 Acute kidney failure with tubular necrosis; L03.113 Cellulitis of right upper limb; F25.9 Schizoaffective disorder, unspecified; N18.4 Chronic kidney disease, stage 4 (severe); F17.200 Nicotine dependence, unspecified, uncomplicated; F31.9 Bipolar disorder, unspecified; Z88.0 Allergy status to penicillin; Z90.710 Acquired absence of both cervix and uterus
CPT/HCPCS: 36415; 70450; 73120; 73200; 80053; 80202; 80305; 80320; 81001; 81025; 83605; 83735; 84145; 84443; 85025; 87040; 93306; 96365; 96366; 96368; 96372; 99285; A4565; A6222; A6446; A6449; G0378; J0692; J0694; J1200; J1630; J2060; J3370; J3490; J7030; J7040; J7070

== ENCOUNTER 2023-05-22 16:44 | Inpatient (IN) | payer MEDICAID ==
[~2023-05-22] VITALS: Ht 162.6 cm; Wt 58.4 kg
[~2023-05-22 16:44] MED LIST changes: +ACET-2006 PO; +ARIP10TA57 PO; -CLON-528 PO; +CLON-565 PO; +DIVA500T9 PO; +HYDR-3686 PO; +LINE600T14 PO; +MULT-1085 PO; -RISP3TAB11 PO; -TRAZ150T78 PO
[2023-05-22] MEDS ORDERED: acetaminophen 325mg tablet PO PRN (17:40)
[2023-05-22] MEDS ORDERED: magnesium hydroxide 30ml (MOM) UD suspension PO PRN (17:40)
[2023-05-22] MEDS ORDERED: mag hydrox/Alum hydrox/simeth 30ml oral suspension PO PRN (17:40)
[2023-05-22] MEDS ORDERED: loperamide 2mg capsule PO PRN (17:40)
[2023-05-22 17:49] VITALS: BP 139/88; PULSE 99; RESP 16; TEMP 98; O2SAT 98
--- NOTE | 2023-05-22 17:51 | NUR ---
ADMITTED NOTE Patient was admitted to unit at 1722. Pt was transferred from PCU on 5150 for GD. Pt was admitted to PCU for severe cellulitis to right hand, however was refusing treatment. Pt's hand is wrapped in Kerlix and arm in a sling. Pt has a long history of LPS conservatorship. History of Schizoaffective. Pt was unable to manage her funds, not able to cook for herself and apartment is threatening eviction. Pt has been calling 911 multiple times in the past two weeks r/t paranoia. LPS referral completed by [facility]. On admit to [facility] pt has been uncooperative with admit process r/t paranoia. Pt states "My friend is coming to pick me up at 8:00 tonight." Pt refused skin assessment, MRSA swab.
[2023-05-22 19:00] VITALS: RESP 16
[2023-05-22 19:30] VITALS: RESP 16; O2SAT 100
[2023-05-22] MEDS: ARIPIPRAZOLE 10 MG TABLET PO SCH (20:00)
[2023-05-22] MEDS: linezolid 600mg tablet PO SCH ×2 (20:00→22:30)
[2023-05-22] MEDS: divalproex sod 250mg ER (24-hour) tablet PO SCH (20:31)
[2023-05-22] MEDS: acetaminophen 325mg tablet PO PRN (21:25)
[2023-05-23] MEDS ORDERED: HYDROcodone/acetaminophen 5mg/325mg tablet PO ONE (02:29)
[2023-05-23] MEDS: hydrOXYzine 25 MG tablet PO PRN ×2 (02:42→21:24)
[2023-05-23] MEDS: HYDROcodone/acetaminophen 5mg/325mg tablet PO PRN ×3 (02:42→17:27)
--- NOTE | 2023-05-23 04:07 | NUR ---
Nursing progress note: Problem:Patient was admitted to unit at 1722. Pt was transferred from PCU on 5150 for GD. Pt was admitted to PCU for severe cellulitis to right hand, however was refusing treatment. Pt's hand is wrapped in Kerlix and arm in a sling. Pt has a long history of LPS conservatorship. History of Schizoaffective. Pt was unable to manage her funds, not able to cook for herself and apartment is threatening eviction. Pt has been calling 911 multiple times in the past two weeks r/t paranoia. LPS referral completed by [facility]. On admit to [facility] pt has been uncooperative with admit process r/t paranoia. Pt states "My friend is coming to pick me up at 8:00 tonight." Pt refused skin assessment, MRSA swab. Interventions: Administered scheduled and PRN meds as prescribed; Monitor patient response and/or behaviors; Reassure patient of safety; Increase level of observation; Minimize amount of environmental stimulation; observe for triggers; Monitor patient behaviors; [place] patient to person , palce and time; Reinforce reality; administer tx's as prescribed, assess status at least 1 time per shift and reassess with any change in status; Monitor effect and side effect of meds and report to MD, Provide patient/family education on disease process x 1 and as needed. Response:Upon arrival to shift noted patient making charge nurse aware that shell be discharging soon and her friend will be here to pick her up. Well-groomed wearing clean green scrubs. Refusing skin check at this time and noncompliant. When asked if this senior grant writer could perform assessment states, why are you doing this again? I just had this done and Im leaving soon. Convinced shes going home and just here to stay until she gets picked up later. Delusional statements made that did not happen with nursing staff. Refused Abilify and Zyvoxx at HS then with much encouragement agreed to take Zyvoxx later as her right arm began to cause her pain. She told charge nurse that she takes Abilify at night however refused it this evening when it was offered saying she takes it in the morning. Lacks insight into the severity of her medical condition and mental state. Pt. does not understand how bad her cellulitis infection is and how necessary the meds are for her. Pictures taken, wound culture obtained, and wound cleansed and redressed. Patient reports feelings of numbness, limited range of motion, cold and discolored fingers. Wound is red with a few purple spots to arm and 4 blisters; 3 intact and 1 ruptured draining milky white exudate near proximal right ring finger. Xerofoam applied to right ring finger and wrapped with gauze and mefix tape. Wound consult pending. Informed patient that we are on the same team and we want her to be well. Fell asleep for a while then woke up in middle of night and c/o pain. Received orders for [place] 5/325 mg po. Fell asleep shortly after administration of [place] and Atarax. PRN Tylenol, [place], and Atarax given. Denies MH s/sx. I dont have none of that mental health stuff. Pt. is very particular in how she does everything. For example, will only take meds with orange juice. Noted patient making phone calls asking for a ride home and calling router operator pin over and over trying to leave. This senior grant writer will pass on to supervise phone calls. Will continue to monitor. Plan: TBD Addendum: 05/23/23 at 0429 by Mely Munoz RN Past medical history includes: Schizoaffective, OCD, Stage 3 kidney failure, Hysterectomy, 2 Abortions and Cellulitis.
[2023-05-23 06:58] LABS: BASOPHILS % (AUTO) 0.3 % (0-1); EOSINOPHILS # (AUTO) 0.2 X10'3 (0-0.9); EOSINOPHILS % (AUTO) 1.9 % (0-6); HEMATOCRIT 31.7 % (35.0-45.0); HEMOGLOBIN 10.6 g/dl (12.0-16.0); LYMPHOCYTES # (AUTO) 2.2 X10'3 (1.1-4.8); LYMPHOCYTES % (AUTO) 21.6 % (21-51); MEAN CORPUSCULAR HEMOGLOBIN 32.3 PG (27.0-31.0); MEAN CORPUSCULAR HGB CONC 33.3 g/dL (33.0-36.5); MEAN CORPUSCULAR VOLUME 97.1 FL (78-98); MEAN PLATELET VOLUME 8.9 FL (7.4-10.4); MONOCYTES # (AUTO) 0.9 X10'3 (0-0.9); MONOCYTES % (AUTO) 9.1 % (2-12); NEUTROPHILS # (AUTO) 6.7 X10'3 (1.8-7.7); NEUTROPHILS % (AUTO) 67.1 % (42-75); PLATELET COUNT 230 X10'3 (140-440); RED BLOOD COUNT 3.27 X10'6 (4.20-5.60); RED CELL DISTRIBUTION WIDTH 14.5 % (11.5-14.5)
[2023-05-23 07:32] LABS: PLATELET ESTIMATE NORMAL; TOTAL CELLS COUNTED 100
[2023-05-23 07:37] LABS: C-REACTIVE PROTEIN 5.24 MG/DL (0.0-0.5); CHOL/HDL RATIO 17.9 (0.00-4.99); CHOLESTEROL 215 MG/DL (0-200); HDL CHOLESTEROL 12 MG/DL (35-60); LDL CHOLESTEROL 85 MG/DL (50-100); TRIGLYCERIDES 505 MG/DL (20-135)
[2023-05-23 07:42] LABS: HEMOGLOBIN A1C 5.4 % (4.5-6.2)
[2023-05-23 08:00] VITALS: BP 114/70; PULSE 81; RESP 14; TEMP 97.9; O2SAT 99
[2023-05-23] MEDS: linezolid 600mg tablet PO SCH ×2 (08:47→20:28)
[2023-05-23] MEDS: ARIPIPRAZOLE 10 MG TABLET PO SCH ×2 (08:48→20:28)
[2023-05-23] MEDS: multivitamins, therapeutics tablet PO SCH (08:49)
--- NOTE | 2023-05-23 16:40 | NUR ---
Nursing progress note: Problem:Patient was admitted to unit at 1722. Pt was transferred from PCU on 5150 for GD. Pt was admitted to PCU for severe cellulitis to right hand, however was refusing treatment. Pt's hand is wrapped in Kerlix and arm in a sling. Pt has a long history of LPS conservatorship. History of Schizoaffective. Pt was unable to manage her funds, not able to cook for herself and apartment is threatening eviction. Pt has been calling 911 multiple times in the past two weeks r/t paranoia. LPS referral completed by [facility]. On admit to [facility] pt has been uncooperative with admit process r/t paranoia. Pt states "My friend is coming to pick me up at 8:00 tonight." Pt refused skin assessment, MRSA swab. Interventions: Administered scheduled and PRN meds as prescribed; Monitor patient response and/or behaviors; Reassure patient of safety; Increase level of observation; Minimize amount of environmental stimulation; observe for triggers; Monitor patient behaviors; [place] patient to person , palce and time; Reinforce reality; administer tx's as prescribed, assess status at least 1 time per shift and reassess with any change in status; Monitor effect and side effect of meds and report to MD, Provide patient/family education on disease process x 1 and as needed. Response: Patient was found sitting in front of nurses stations asking about medications at the beginning of shift. Patient kept asking for things repeatedly and became agitated when asked for patience. Patient started pacing back and forth in front of nurses station until receiving morning medications including prn [place]. Patient then started calling family friend yelling at them to bring her, some clothes, shoes and her purse. Patient then proceeded to pick at bandage and when nurse tried to fix it complained. Nurse tried to redo bandage at patients requested and then later wouldn't allow. Patient continued to argue with staff when asked to remain out of hallway due to volatile situation with another patient. Patient had to be redirected multiple times. Plan: TBD
[2023-05-23 19:41] VITALS: RESP 20; O2SAT 92
[2023-05-23 20:00] VITALS: BP 136/81; PULSE 89; RESP 20; TEMP 97.2; O2SAT 92
[2023-05-23] MEDS: divalproex sod 250mg ER (24-hour) tablet PO SCH (20:28)
[2023-05-23] MEDS: acetaminophen 325mg tablet PO PRN (21:28)
[2023-05-24] MEDS: hydrOXYzine 25 MG tablet PO PRN (02:29)
[2023-05-24] MEDS: HYDROcodone/acetaminophen 5mg/325mg tablet PO PRN ×3 (02:30→14:36)
--- NOTE | 2023-05-24 03:59 | NUR ---
Nursing progress note: Problem:Patient was admitted to unit at 1722. Pt was transferred from PCU on 5150 for GD. Pt was admitted to PCU for severe cellulitis to right hand, however was refusing treatment. Pt's hand is wrapped in Kerlix and arm in a sling. Pt has a long history of LPS conservatorship. History of Schizoaffective. Pt was unable to manage her funds, not able to cook for herself and apartment is threatening eviction. Pt has been calling 911 multiple times in the past two weeks r/t paranoia. LPS referral completed by [facility]. On admit to [facility] pt has been uncooperative with admit process r/t paranoia. Pt states "My friend is coming to pick me up at 8:00 tonight." Pt refused skin assessment, MRSA swab. Interventions: Administered scheduled and PRN meds as prescribed; Monitor patient response and/or behaviors; Reassure patient of safety; Increase level of observation; Minimize amount of environmental stimulation; observe for triggers; Monitor patient behaviors; [place] patient to person , palce and time; Reinforce reality; administer tx's as prescribed, assess status at least 1 time per shift and reassess with any change in status; Monitor effect and side effect of meds and report to MD, Provide patient/family education on disease process x 1 and as needed. Response: Upon arrival to shift noted patient sitting up in dining room eating dinner. Patient gave a bright greeting, shereen Boone. Began showing this nurse her clothing and sharing how long shes had it and pointing out each detail with delight. Noted to be well-groomed wearing clean street clothes. Pleasant and intrusive. Hyperverbal. Needs redirection. Does well when boundaries are set. Denies mental health s/sx. Im excellent. Then begin to share with nurse that she had a visit today. An German doctor came in to see me and she felt bad for me that I had to stay here. She said that it never should have happened. Delusional statements made, Fabiola Goldenfani stole a pair of my shoes that Rajesh Eugene gave me. That bitch. Compliant on HS meds. Continues on Zyvoxx for Cellulitis to Right Arm BID. Dressing changed this shift. Right arm skin appears to be more reddened and defined. Also noted another blister is oozing. Marked arm with marker to track progress. Preliminary results from gram stain came back positive for moderate PMNS, Few Gram Positive Cocci in pairs; Organism 1: Streptococcus Pyogenes (GRP A) Heavy growth. Wound consult pending. PRN Tylenol, [place], and Atarax given. Patient slept for a few hours then woke up. Was making multiple requests for different things. Redirected back to her room. Administered [place] and Atarax with good effect. Sleep was poor. Will continue to monitor. Plan: TBD
[2023-05-24 07:00] VITALS: RESP 20; O2SAT 100
[2023-05-24 08:00] VITALS: BP 127/76; PULSE 90; RESP 20; TEMP 98.1; O2SAT 100
[2023-05-24] MEDS: ARIPIPRAZOLE 10 MG TABLET PO SCH ×2 (08:32→20:33)
[2023-05-24] MEDS: linezolid 600mg tablet PO SCH ×2 (08:32→20:33)
[2023-05-24] MEDS: multivitamins, therapeutics tablet PO SCH (08:32)
--- NOTE | 2023-05-24 17:32 | NUR ---
Nursing progress note: Problem:Patient was admitted to unit at 1722. Pt was transferred from PCU on 5150 for GD. Pt was admitted to PCU for severe cellulitis to right hand, however was refusing treatment. Pt's hand is wrapped in Kerlix and arm in a sling. Pt has a long history of LPS conservatorship. History of Schizoaffective. Pt was unable to manage her funds, not able to cook for herself and apartment is threatening eviction. Pt has been calling 911 multiple times in the past two weeks r/t paranoia. LPS referral completed by [facility]. On admit to [facility] pt has been uncooperative with admit process r/t paranoia. Pt states "My friend is coming to pick me up at 8:00 tonight." Pt refused skin assessment, MRSA swab. Interventions: Administered scheduled and PRN meds as prescribed; Monitor patient response and/or behaviors; Reassure patient of safety; Increase level of observation; Minimize amount of environmental stimulation; observe for triggers; Monitor patient behaviors; [place] patient to person , palce and time; Reinforce reality; administer tx's as prescribed, assess status at least 1 time per shift and reassess with any change in status; Monitor effect and side effect of meds and report to MD, Provide patient/family education on disease process x 1 and as needed. Response: Patient was up soon after change of shift. Patient is talkative and often unaware of recipient's engagement in conversation. Patient very much wants everything done her way. Patient denies SI/HI and denies A/V hallucinations. Patient is very social. Patient took her medication as prescribed. RN changed patient's wound to take pictures. Wound looks better today and redness has not bleed over the margins by marker. Blister on hand has ruptured and is painful. Patient tolerated the dressing change with a little difficulty. Patient received her [place] Q 6 hours almost on the dot. Patient is happy she received her book from home today. Patient was upset when finding out she was placed on a 5250. Patient is aware she is going to court on 05/26 to contest. Patient was mostly pleasant today. Plan: Patient needs a safe environment where her medications will be titrated to effect.
[2023-05-24 19:00] VITALS: RESP 16; O2SAT 97
[2023-05-24] MEDS: acetaminophen 325mg tablet PO PRN (19:37)
[2023-05-24 20:00] VITALS: BP 122/72; PULSE 88; RESP 16; TEMP 97.8; O2SAT 97
[2023-05-24] MEDS: divalproex sod 250mg ER (24-hour) tablet PO SCH (20:33)
[2023-05-25] MEDS: acetaminophen 325mg tablet PO PRN (02:04)
--- NOTE | 2023-05-25 05:16 | NUR ---
Nursing progress note: Problem:Patient was admitted to unit at 1722. Pt was transferred from PCU on 5150 for GD. Pt was admitted to PCU for severe cellulitis to right hand, however was refusing treatment. Pt's hand is wrapped in Kerlix and arm in a sling. Pt has a long history of LPS conservatorship. History of Schizoaffective. Pt was unable to manage her funds, not able to cook for herself and apartment is threatening eviction. Pt has been calling 911 multiple times in the past two weeks r/t paranoia. LPS referral completed by [facility]. On admit to [facility] pt has been uncooperative with admit process r/t paranoia. Pt states "My friend is coming to pick me up at 8:00 tonight." Pt refused skin assessment, MRSA swab. Interventions: Administered scheduled and PRN meds as prescribed; Monitor patient response and/or behaviors; Reassure patient of safety; Increase level of observation; Minimize amount of environmental stimulation; observe for triggers; Monitor patient behaviors; [place] patient to person , palce and time; Reinforce reality; administer tx's as prescribed, assess status at least 1 time per shift and reassess with any change in status; Monitor effect and side effect of meds and report to MD, Provide patient/family education on disease process x 1 and as needed. Response: Pt received in [facility]. Pt states she does not belong here and the mental health worker who wrote her paperwork lied. She stated the mental worker lied about her not taking her medications. Patient kept reinforcing that she has a townhouse and a pile of mail/newspapers that she has to sort through. She is ready to discharge on Thursday05/26/[address] She states she has a significant other to share the bills with. Patient is pleasant during interaction. Patient throughout shift will repeatedly ask staff about her clothing being washed. Patient was advised multiple patients clothing was also in cue to wash ahead of her and will be washed by this evening. Therapeutic communication utilized but unsuccessful. Prior to medication pass, Natalie requested her medications be given with her food. Systems Test Engineer acknowledged and stated I will give after snack. She stated she wanted to wait some time to let her food digest. Systems Test Engineer then followed up for patient to seek junior underwriter. During medication pass, junior underwriter was preparing another patients medications and Natalie came to nurse. Systems Test Engineer stated he will prepare her medications after administering the current patients medications. She acknowledged. A few minutes later, patient became easily agitated and irritable stating she wanted her medications now. Systems Test Engineer reinforced he will give as soon as he passes his current patient. Patient stated junior underwriter never told her anything. Systems Test Engineer administered medications as stated. Patients wound to right hand became exposed due to kerlix rolling back secondary to patient putting on jacket. Wound care provided. Patient stated the normal saline was moderately uncomfortable. The wound bed on right 4th digit has 75% white slough and pink wound bed. The blister superior to wound on right 4th digit is pink with red wound bed. Small amount of yellow serous fluid draining. Pt right hand continues to be edematous 3+, cap refill delayed, bilateral hands are cool to touch. Pt right hand was elevated on pillows. Marked borders noted to right forearm. Cellulitis appears to be improving. Pt was able to sleep and pain managed. Pt awoke approximately 0300hours. Pt needed to be reminded multiple times not to talk to loud because other patients were sleeping. She needs reinforcement to follow simple directions. Plan: Patient needs a safe environment where her medications will be titrated to effect.
--- NOTE | 2023-05-25 05:45 | NUR ---
SALES TEAM MEMBER documentation: I have reviewed and agree with all interventions, assessments performed and documented by Efren PARK.
[2023-05-25] MEDS: HYDROcodone/acetaminophen 5mg/325mg tablet PO PRN ×3 (05:46→21:34)
[2023-05-25 07:00] VITALS: RESP 16; O2SAT 99
[2023-05-25 08:00] VITALS: BP 135/86; PULSE 86; RESP 16; TEMP 97.5; O2SAT 99
[2023-05-25] MEDS: ARIPIPRAZOLE 10 MG TABLET PO SCH ×2 (08:06→20:38)
[2023-05-25] MEDS: linezolid 600mg tablet PO SCH ×2 (08:06→20:38)
[2023-05-25] MEDS: multivitamins, therapeutics tablet PO SCH (08:06)
--- NOTE | 2023-05-25 15:56 | NUR ---
Nursing progress note: Problem:Patient was admitted on 5150 for GD. Pt was admitted to PCU for severe cellulitis to right hand, however was refusing treatment. Pt's hand is wrapped in Kerlix and arm in a sling. Pt has a long history of LPS conservatorship. History of Schizoaffective. LPS referral completed by [facility]. Interventions: Administered medications as prescribed, Reinforce reality, Monitor patient response and/or behaviors, Q15 min checks, Monitor effect and side effect of meds and report to MD, Provide patient/family education on disease process. Response: Pt. received awake and pacing the unit, she immediately approached this senior underwriter perseverating on her lip gloss and childhood stories. Pt. denies SI, HI, AH, VH. Pt. presents with good eye contact, repetitive, and speaks for long periods of time. Pt. received with RFA wrapped in Keflex; RUE presents with cellulitis, edema to rt. hand and fingers; CSM continues to be monitored. Open blisters on dorsal hand and dark purple areas on FA, cleaned with NS, covered open areas with Xeroform, padded with 4x4 and wrapped in kerlex. Pt. tolerated WC well, later c/o pain and was given PRN [place] with good results. Pt. continues on PO ABX Zyvox with zero ASE found. Pt. ate all meals in the community room and interacts socially with cohorts. She spent a considerable time near nurses station, often intrusive, verbalizing delusional statements. PRN: [place] Plan: Patient needs a safe environment where her medications will be titrated to effect.
[2023-05-25 19:00] VITALS: RESP 20; O2SAT 66
[2023-05-25 20:00] VITALS: BP 140/75; PULSE 93; RESP 20; TEMP 97.7; O2SAT 99
[2023-05-25] MEDS: divalproex sod 250mg ER (24-hour) tablet PO SCH (20:38)
[2023-05-26] MEDS: acetaminophen 325mg tablet PO PRN ×2 (04:20→22:12)
--- NOTE | 2023-05-26 05:23 | NUR ---
Nursing progress note: Problem:Patient was admitted on 5150 for GD. Pt was admitted to PCU for severe cellulitis to right hand, however was refusing treatment. Pt's hand is wrapped in Kerlix and arm in a sling. Pt has a long history of LPS conservatorship. History of Schizoaffective. LPS referral completed by [facility]. Interventions: Administered medications as prescribed, Reinforce reality, Monitor patient response and/or behaviors, Q15 min checks, Monitor effect and side effect of meds and report to MD, Provide patient/family education on disease process. Response: Pt received ambulating in halls. Pt social and talkative. Pt pleasant at beginning of shift. She is able to make her needs known. Pt denies pain. Pt has dressing to right hand noted. CDI. Fingers cool to touch, edematous, Pt able to move all fingers. Pt stated her right thumb nail broke today. Pt has no complaints. Pt attended snack in the day room. Pt was compliant with medication pass. Pt pain managed with PRN [place] following medication pass. [place] effective. Pt additionally stated she has stabbing pain to back due to not having a bra. Heat pack provided and effective. Pt elevated right extremity on pillows. Pt woke 0145hrs approximately. She was offered intervention to resume sleeping but declined. Pt requested snack again at 0300hours, provided. Pt continues to be intrustive at 0350hours. Pt refused any intervention to resumed sleeping and states I dont need to steep. Pt wants to socialize with staff but redirected back to room. Pt becomes easily agitated with freelance writer. At 0415hrs, pt accessed Tylenol for back pain. Pt becomes argumentative with staff because she wants the meds to be given at the nurse station. Pt attempts to socialize with staff despite redirection and offered distraction activities. Car Whacker brought Tylenol to her room. Pt was able to be redirected. She states that she was bothered that another staff member kept asking her questions and she didnt like that. Car Whacker inquired if she asked the staff member to stop. Pt stated she did ask the staff member to stop. Car Whacker observed her interaction with staff member earlier in the shift. Patient was talkative and engaging. Pt states she gets grouchy when she is in pain. Plan: Patient needs a safe environment where her medications will be titrated to effect.
--- NOTE | 2023-05-26 05:31 | NUR ---
CUFF TURNER MACHINE OPERATOR documentation: I have reviewed and agree with all interventions, assessments performed and documented by Efren PARK.
[2023-05-26] MEDS: HYDROcodone/acetaminophen 5mg/325mg tablet PO PRN ×3 (06:59→20:49)
[2023-05-26 07:00] VITALS: RESP 18; O2SAT 96
[2023-05-26 07:16] LABS: BASOPHILS % (AUTO) 0.3 % (0-1); EOSINOPHILS # (AUTO) 0.2 X10'3 (0-0.9); EOSINOPHILS % (AUTO) 2.5 % (0-6); HEMATOCRIT 30.7 % (35.0-45.0); HEMOGLOBIN 9.8 g/dl (12.0-16.0); LYMPHOCYTES # (AUTO) 2.2 X10'3 (1.1-4.8); LYMPHOCYTES % (AUTO) 22.5 % (21-51); MEAN CORPUSCULAR HEMOGLOBIN 31.4 PG (27.0-31.0); MEAN CORPUSCULAR HGB CONC 32.1 g/dL (33.0-36.5); MEAN PLATELET VOLUME 8.3 FL (7.4-10.4); MONOCYTES % (AUTO) 10.5 % (2-12); NEUTROPHILS # (AUTO) 6.2 X10'3 (1.8-7.7); NEUTROPHILS % (AUTO) 64.2 % (42-75); PLATELET COUNT 379 X10'3 (140-440); RED BLOOD COUNT 3.13 X10'6 (4.20-5.60); RED CELL DISTRIBUTION WIDTH 14.4 % (11.5-14.5); WHITE BLOOD COUNT 9.6 X10'3 (4.5-11.0)
[2023-05-26 07:35] LABS: ALANINE AMINOTRANSFERASE 31 U/L (12-78); ALBUMIN 2.7 G/DL (3.4-5.0); ALBUMIN/GLOBULIN RATIO 0.6 (1.1-1.5); ALKALINE PHOSPHATASE 191 IU/L (46-116); ANION GAP 10 (8-16); ASPARTATE AMINO TRANSFERASE 21 U/L (10-37); BILIRUBIN,TOTAL 0.2 MG/DL (0.1-1.0); BLOOD UREA NITROGEN 43 MG/DL (7-18); BUN/CREATININE RATIO 15.2 (10.0-20.0); CALCIUM 9.7 MG/DL (8.5-10.1); CHLORIDE 103 MMOL/L (99-107); CREATININE 2.82 MG/DL (0.40-0.90); GLUCOSE 118 MG/DL (70-104); MAGNESIUM 2.4 MG/DL (1.5-2.4); PHOSPHORUS 4.7 MG/DL (2.3-4.5); POTASSIUM 5.3 MMOL/L (3.5-5.1); SODIUM 139 MMOL/L (135-145); TOTAL CARBON DIOXIDE 26.5 MMOL/L (24-32); TOTAL PROTEIN 6.9 G/DL (6.4-8.2); eCRCL 18 ML/MIN; eGFR 17 ML/MIN
[2023-05-26 07:48] VITALS: BP 122/81; PULSE 99; RESP 18; TEMP 98.1; O2SAT 96
[2023-05-26] MEDS: linezolid 600mg tablet PO SCH ×2 (08:08→20:06)
[2023-05-26] MEDS: atorvastatin 10mg tablet PO SCH (08:08)
[2023-05-26] MEDS: ARIPIPRAZOLE 10 MG TABLET PO SCH ×2 (08:08→20:05)
[2023-05-26] MEDS: fenofibrate 145mg tablet PO SCH (08:08)
[2023-05-26] MEDS: multivitamins, therapeutics tablet PO SCH (08:08)
--- NOTE | 2023-05-26 08:40 | NUR ---
LPS INVESTIGATION LPS report has been filed and it sounds as though Public Guardian is proceeding with investigation. ROSALIE Cartagena
[2023-05-26 08:51] LABS: PLATELET ESTIMATE NORMAL; TOTAL CELLS COUNTED 100
[2023-05-26 08:53] LABS: HYPOCHROMASIA 2+; STOMATOCYTES FEW
[2023-05-26 08:54] LABS: LARGE PLATELETS FEW
--- NOTE | 2023-05-26 13:53 | NUR ---
WOUND INFECTION EDUCATION PROVIDED BY WOUND CARE 1. Patient instructed to call their primary doctor, or go the ED immediately if any of the following symptoms occur: * Increased pain in wound * Increase in drainage from the wound * Redness in the skin surrounding the wound * Warmth in the skin surrounding the wound * Bleeding from the wound * Temperature of 101 or greater 2. If any of these occur while in the hospital tell a nurse immediately. Addendum: 05/26/23 at 1354 by Laisha Honeycutt LVN Amended: Links added.
--- NOTE | 2023-05-26 16:02 | NUR ---
5250 upheld for GD
--- NOTE | 2023-05-26 16:28 | NUR ---
Nursing progress note: Natalie Problem:Patient was admitted on 5150 for GD. Pt was admitted to PCU for severe cellulitis to right hand, however was refusing treatment. Pt's hand is wrapped in Kerlix and arm in a sling. Pt has a long history of LPS conservatorship. History of Schizoaffective. LPS referral completed by [facility]. Interventions: Administered medications as prescribed, Reinforce reality, Monitor patient response and/or behaviors, Q15 min checks, Monitor effect and side effect of meds and report to MD. Response: Pt. received in the solis pacing slowly. She took her medications without hesitation and requested PRN [place] for pain to RUE. She denies SI, HI, AH, VH and reports Im going home today after my hearing Pt. spent most of the morning in front of nursing station, often intrusive with staff requiring redirection. She doesnt interact or socialize with cohorts. Pt. was seen by treatment nurse for evaluation and bandage change. CSM continues to be monitored and education provided to pt. on ROM with fingers and elevating limb intermittently. At 1500 pt. c/o Rt. hand pain; PRN [place] administered with good results.Pt. ate all meals in the community room with cohorts. Pt. has good hygiene, hair is in a pony, and she wears street clothes. Pt. did not attend group. Completed her hearing today and her hold was upheld. PRN: [place] X2 Plan: Patient needs a safe environment where her medications will be titrated to effect.
--- NOTE | 2023-05-26 17:51 | NUR ---
SOLAR RESOURCE ASSESSOR documentation: I have reviewed all interventions and assessments performed and documented by XAVIER Juarez.
[2023-05-26 19:28] VITALS: BP 131/89; PULSE 118; RESP 18; TEMP 97.7; O2SAT 100
[2023-05-26] MEDS: divalproex sod 250mg ER (24-hour) tablet PO SCH (20:05)
[2023-05-26] MEDS: hydrOXYzine 25 MG tablet PO PRN (20:06)
[2023-05-27] MEDS: HYDROcodone/acetaminophen 5mg/325mg tablet PO PRN ×3 (03:28→16:57)
--- NOTE | 2023-05-27 03:32 | NUR ---
Nursing progress note: Problem:Patient was admitted on 5150 for GD. Pt was admitted to PCU for severe cellulitis to right hand, however was refusing treatment. Pt's hand is wrapped in Kerlix and arm in a sling. Pt has a long history of LPS conservatorship. History of Schizoaffective. LPS referral completed by [facility]. Interventions: Administered medications as prescribed, Reinforce reality, Monitor patient response and/or behaviors, Q15 min checks, Monitor effect and side effect of meds and report to MD. Response: Patient is hyperverbal, restless and can be intrusive; she was compliant (but particular with time) with medication. PRNs [place] and Tylenol provided for pain and Atarax provided for anxious behavior. Patient verbalized what she'd like written for her write while CRN write for her d/t her dominant hand being wrapped. Patient's wound DSG CDI and did not require to be change this shift. Patient continues to express delusional thought content regarding relations with singers and actors. She participated in HS snack and socialized with staff prior to bed; she slept briefly but woke up early. Plan: Patient needs a safe environment where her medications will be titrated to effect.
--- NOTE | 2023-05-27 04:41 | NUR ---
NOUGAT CANDY MAKER HELPER documentation: I have reviewed and agree with all interventions, assessments performed and documented by Claudia Nunez LVN.
[2023-05-27 07:00] VITALS: RESP 16; O2SAT 99
[2023-05-27 08:00] VITALS: BP 123/82; PULSE 97; RESP 16; TEMP 98.6; O2SAT 99
[2023-05-27] MEDS: linezolid 600mg tablet PO SCH ×2 (08:12→20:53)
[2023-05-27] MEDS: ARIPIPRAZOLE 10 MG TABLET PO SCH ×2 (08:12→20:52)
[2023-05-27] MEDS: atorvastatin 10mg tablet PO SCH (08:12)
[2023-05-27] MEDS: multivitamins, therapeutics tablet PO SCH (08:12)
[2023-05-27] MEDS: fenofibrate 145mg tablet PO SCH (08:12)
--- NOTE | 2023-05-27 08:45 | NUR ---
REMEDIAL TEACHER documentation: LATE ENTRY for [facility] REMEDIAL TEACHER 05/20/2023. I have reviewed and agree with all interventions, assessments and documentation performed and documented by Laisha Honeycutt LVN
[2023-05-27] MEDS: sodium polystyrene sulfonate 15gm/60ml oral suspension PO ONE ×2 (10:05→11:19)
--- NOTE | 2023-05-27 14:17 | NUR ---
Initial: Pt admit DX R-hand Cellulitis, CKD IV, Bipolar, Anemia, Hypertriglyceridemia per EMR. Pt partial thick cellulitis no wound depth, per WOC note. Noted patient receiving Zyvox per EMR; not appropriate for diet ed at this time. Pt on renal diet with mostly 100% PO intake with additional snacks, meeting estimated needs.LBM 05/26/23 per EMR. PRN bowel care available, No nutrition intervention implemented at this time. Will continue to follow and make recommendations as appropriate. Rec: 1)Continue renal diet, 2)continue routine MVI per MD 3)Bowel care PRN 4)Weekly weights 5)Low tyramine diet ed deferred as appropriate Addendum: 05/27/23 at [address] Amended: Links added. Addendum: 05/27/23 at [address] EMERY has reviewed and approves of above Dietitic Exceptional Student Education Teacher note.
--- NOTE | 2023-05-27 16:25 | NUR ---
Nursing progress note: Natalie Problem:Patient was admitted on 5150 for GD. Pt was admitted to PCU for severe cellulitis to right hand, however was refusing treatment. Pt's hand is wrapped in Kerlix and arm in a sling. Pt has a long history of LPS conservatorship. History of Schizoaffective. LPS referral completed by [facility]. Interventions: Administered medications as prescribed, Reinforce reality, Monitor patient response and/or behaviors, Q15 min checks, Monitor effect and side effect of meds and report to MD. Response: Pt. received awake and ambulating down the solis. Pt. denies SI, HI,AH, VH and reports she wants to return home. She presents as irritable, demanding, and intrusive. Pt. spent most of the morning rounding to all staff often intrusive and perseverating on her multiple complaints. She is direct able at times, but can elevate her voice toward staff at times. Pt. continues on PO ABX for RUE infection, today cellulitis and edema has decreased, open areas to anterior hand remain, CMS monitored, and wound care completed per TAR. She was medicated with PRN [place] for pain to RUE with good results. Pt. Received N.O Kayexalate r/t elevated K+ level of 5.3, but she refused to take the medication. Pt. has fair hygiene, groomed, and wears street clothes. Pt. was interviewed by [facility], and Rit was filed. PRN: [place] Plan: Patient needs a safe environment where her medications will be titrated to effect.
[2023-05-27 19:00] VITALS: RESP 16; O2SAT 99
[2023-05-27 20:00] VITALS: BP 123/81; PULSE 109; RESP 16; TEMP 97.3; O2SAT 99
[2023-05-27] MEDS: divalproex sod 250mg ER (24-hour) tablet PO SCH (20:52)
[2023-05-27] MEDS: hydrOXYzine 25 MG tablet PO PRN (20:52)
--- NOTE | 2023-05-27 22:52 | NUR ---
Nursing progress note: Problem:Patient was admitted on 5150 for GD. Pt was admitted to PCU for severe cellulitis to right hand, however was refusing treatment. Pt's hand is wrapped in Kerlix and arm in a sling. Pt has a long history of LPS conservatorship. History of Schizoaffective. LPS referral completed by [facility]. Interventions: Administered medications as prescribed, Reinforce reality, Monitor patient response and/or behaviors, Q15 min checks, Monitor effect and side effect of meds and report to MD. Response: Patient remains hyperverbal and can be intrusive at times. She was cooperative with care and compliant with medication; PRN Atarax for anxious behavior provided. Wound DSG CDI. Patient denied SI, HI, A/VH; she appears to express frequent delusional thoughts regarding famous people and crimes against her. She's easily agitated over the TV but able to be redirected. Patient participated in HS snack and talked on the phone prior to bed; she appears to be sleeping without issue at this time. Plan: Patient needs a safe environment where her medications will be titrated to effect. Addendum: 05/28/23 at 0324 by Claudia Nunez RN Patient woke early AM; PRN [place] provided for arm pain.
[2023-05-28] MEDS: HYDROcodone/acetaminophen 5mg/325mg tablet PO PRN ×3 (03:24→16:53)
[2023-05-28 07:00] VITALS: RESP 16; O2SAT 98
[2023-05-28] MEDS: ARIPIPRAZOLE 10 MG TABLET PO SCH ×2 (07:23→20:40)
[2023-05-28] MEDS: hydrOXYzine 25 MG tablet PO PRN (07:24)
[2023-05-28] MEDS: linezolid 600mg tablet PO SCH ×2 (07:24→20:40)
[2023-05-28] MEDS: multivitamins, therapeutics tablet PO SCH (07:24)
[2023-05-28] MEDS: atorvastatin 10mg tablet PO SCH (07:24)
[2023-05-28] MEDS: fenofibrate 145mg tablet PO SCH (07:25)
[2023-05-28 07:39] VITALS: BP 121/80; PULSE 110; RESP 16; TEMP 98.5; O2SAT 98
[2023-05-28] MEDS: acetaminophen 325mg tablet PO PRN ×2 (12:31→18:48)
--- NOTE | 2023-05-28 12:44 | NUR ---
LPS REFERRAL Spoke to Chandra Walker, Psychologist with [facility] (ph# [phone]), who reported he interviewed Natalie yesterday as part of an LPS evaluation. He reported he is still conducting research and will likely recommend conservatorship. Spoke with Binta at [facility] (ph# [phone]) who reported that the soonest a T Con would be in place would be 06/04/23. Apprised them that Natalie has filed a writ. ROSALIE Cartagena
--- NOTE | 2023-05-28 17:29 | NUR ---
Nursing progress note: Natalie Problem:Patient was admitted on 5150 for GD. Pt was admitted to PCU for severe cellulitis to right hand, however was refusing treatment. Pt's hand is wrapped in Kerlix and arm in a sling. Pt has a long history of LPS conservatorship. History of Schizoaffective. LPS referral completed by [facility]. Interventions: Administered medications as prescribed, Reinforce reality, Monitor patient response and/or behaviors, Q15 min checks, Monitor effect and side effect of meds and report to MD. Response: Pt. received awake and ambulating down the solis. Pt demanding crackers and juice from all staff members first thing this morning due to pt reporting special needs because of her cellulitis. Pt educated that breakfast will be arriving soon. Pt staff splitting to try and receive extra snacks presenting intrusive, demanding, and irritable. Patient remains hyperverbal in every interaction. Pt upset in hallway stating her vitals were not completed even though she was the first pt to have vitals taken. This RN performed a dressing change and while doing so pt apologized for being so demanding in the morning. Pt states she doesnt feel good and acts that way when she doesnt feel good. Performed 1:1 bedside. Pt denies SI/HI and AVH. Pt attended group this morning, making artwork. Pt states she is excited to go to taoist when she leaves. No s/s of distress. Pt complained to this RN throughout the entire shift about varying things that were not meeting her standards; the TV being on the wrong channel, laundry not finished quickly enough, not enough snacks, etc. Plan: Patient needs a safe environment where her medications will be titrated to effect.
[2023-05-28 19:30] VITALS: BP 132/80; PULSE 99; RESP 16; TEMP 98.1; O2SAT 95
[2023-05-28] MEDS ORDERED: divalproex sod 250mg ER (24-hour) tablet PO SCH (21:00)
--- NOTE | 2023-05-28 22:40 | NUR ---
Nursing progress note: Problem:Patient was admitted on 5150 for GD. Pt was admitted to PCU for severe cellulitis to right hand, however was refusing treatment. Pt's hand is wrapped in Kerlix and arm in a sling. Pt has a long history of LPS conservatorship. History of Schizoaffective. LPS referral completed by [facility]. Interventions: Administered medications as prescribed, Reinforce reality, Monitor patient response and/or behaviors, Q15 min checks, Monitor effect and side effect of meds and report to MD. Response: Patient is pleasant but intrusive and hyperverbal; compliant with HS medication. Depakote was increased to 1000mg this shift. Patient denied SI, HI, A/VH; appears to report frequent delusions regarding famous people as well as reporting peers are throwing pitchers of water into her room. Wound DSG to R arm changed as DSG was sliding off; patient c/o increased pain at wound site. She was encouraged to hold her hand close to her shoulder to elevate; PRN Tylenol provided for pain. Patient socialized with peers and participated in HS snack prior to bed; appears to be sleeping without difficulty. Plan: Patient needs a safe environment where her medications will be titrated to effect. Addendum: 05/29/23 at 0511 by Claudia Nunez RN Patient woke early and has been restless; only slept 2.25 hrs.
[2023-05-29] MEDS: HYDROcodone/acetaminophen 5mg/325mg tablet PO PRN ×2 (01:07→08:20)
[2023-05-29] MEDS: acetaminophen 325mg tablet PO PRN ×3 (02:36→11:49)
[2023-05-29 07:00] VITALS: RESP 16; O2SAT 100
[2023-05-29 07:31] VITALS: BP 136/79; PULSE 102; RESP 16; TEMP 98.3; O2SAT 100
[2023-05-29] MEDS: linezolid 600mg tablet PO SCH (08:19)
[2023-05-29] MEDS: multivitamins, therapeutics tablet PO SCH (08:19)
[2023-05-29] MEDS: fenofibrate 145mg tablet PO SCH (08:19)
[2023-05-29] MEDS: atorvastatin 10mg tablet PO SCH (08:19)
[2023-05-29] MEDS: ARIPIPRAZOLE 10 MG TABLET PO SCH (08:19)
[2023-05-29 09:20] VITALS: RESP 16
--- NOTE | 2023-05-29 17:01 | NUR ---
RELEASED FROM [id number] [facility] ROSALIE Hathaway
[2023-05-29] MEDS ORDERED: DIVA500T9 PO (17:18)
[2023-05-29] MEDS ORDERED: LINE600T14 PO (17:18)
[2023-05-29] MEDS ORDERED: FENO145T25 PO (17:18)
[2023-05-29] MEDS ORDERED: ARIP10TA15 PO (17:18)
[2023-05-29] MEDS ORDERED: ATOR10TA PO (17:18)
[2023-05-29] MEDS ORDERED: HYDR-3964 PO (17:18)
[2023-05-29] MEDS ORDERED: HYDR-3686 PO (17:18)
--- NOTE | 2023-05-29 18:20 | NUR ---
Pt discharged home, picked up by [facility] special needs bus driver. Pt escorted off the unit walking accompanied by this RN, all belongings returned, pt expressed understanding of Rx's,discharge instructions, and follow up care.
== END 2023-05-29 18:19 | disposition home or self-care (01) | DRG 750 ==
LOC: ADULT MH 17:38
PROVIDERS: ADMIT Psychiatry & Neurology Psychiatry; ATTEND Psychiatry & Neurology Psychiatry
DX: F25.0 Schizoaffective disorder, bipolar type (principal); N17.9 Acute kidney failure, unspecified; N18.4 Chronic kidney disease, stage 4 (severe); D64.9 Anemia, unspecified; E78.1 Pure hyperglyceridemia; F23 Brief psychotic disorder; Z91.148 Patient's other noncompliance with medication regimen for other reason; Z90.710 Acquired absence of both cervix and uterus; Z79.899 Other long term (current) drug therapy; Z88.0 Allergy status to penicillin; Z88.6 Allergy status to analgesic agent; Z88.1 Allergy status to other antibiotic agents; L03.113 Cellulitis of right upper limb
CPT/HCPCS: 36415; 80053; 80061; 83036; 83735; 84100; 85007; 85025; 86140; 87070; 87077; 87081; 87186; A6223; A6250; A6446; A6449; Q0177

== ENCOUNTER 2023-06-05 16:34 | Emergency (ER) | payer MEDICAID ==
[~2023-06-05] VITALS: Ht 172.7 cm; Wt 58.6 kg
[~2023-06-05 16:34] MED LIST changes: +ARIP10TA15 PO; -ARIP10TA57 PO; +ATOR10TA PO; -CLON-565 PO; +FENO145T25 PO; +HYDR-3964 PO
--- NOTE | 2023-06-05 17:13 | NUR ---
ken attempted to have patient get changed into greens and to give a urine sample, patient refused. Ken informed the doctor would be in to see her momentarily.
[2023-06-05] MEDS ORDERED: cephalexin 250mg capsule PO ONE (18:15)
[2023-06-05] MEDS ORDERED: LORazepam 2 mg/ml vial IM STA (19:05)
[2023-06-05] MEDS ORDERED: diphenhydrAMINE 50 mg/ml inj IM STA (19:05)
[2023-06-05] MEDS ORDERED: haloperidol lactate 5mg/ml inj IM STA (19:05)
--- NOTE | 2023-06-05 19:07 | NUR ---
pt is argumentative, semi redirectable. Takes some reassurance. She stands at the doorway and says she wants to leave. Doesn't believe she is on a hold. Tech attempting to change her into green scrubs, security at the hallway for standby. Dr Ajith waters as pt is agitated, elopement risk. She is verbally mean to staff. I just heard her tell my tech "are you on acid?"
--- NOTE | 2023-06-05 19:19 | NUR ---
PT HAS RECIEVED 1 MG ATIVAN, 25 MG BENADRYL, AND 10 MG HALDOL PER MD ORDERS. TECH AND SECURITY AT BEDSIDE FOR ASSISTANCE. PT IS NOW LAYING ON THE BED AND IS REFUSING TO COMMUINCATE NEEDS WITH STAFF. PT DOES NOT APPEAR TO BE IN ANY STRESS. RR ARE EQUAL AND UNLABORED.
[2023-06-05 19:43] LABS: BILIRUBIN,URINE NEGATIVE (Neg); CLARITY,URINE CLEAR (Clear); COLOR,URINE STRAW (Yellow); GLUCOSE, URINE NEGATIVE (Neg); KETONES,URINE NEGATIVE (Neg); LEUKOCYTE ESTERASE ,URINE NEGATIVE (Neg); NITRITES, URINE NEGATIVE (Neg); OCCULT BLOOD,URINE TRACE-INTACT (Neg); PROTEIN,URINE TRACE mg/dl (Neg); UROBILINOGEN,URINE 0.2 E.U/dL (0.2-1.0)
[2023-06-05 19:50] LABS: UA COLLECTION TYPE VOIDED
[2023-06-05 19:52] LABS: URINE AMPHETAMINE SCREEN NEGATIVE (Neg); URINE BARBITUATE SCREEN NEGATIVE (Neg); URINE BENZODIAZEPINES SCREEN NEGATIVE (Neg); URINE CANNABINOID SCREEN NEGATIVE (Neg); URINE COCAINE SCREEN NEGATIVE (Neg); URINE METHADONE SCREEN NEGATIVE (Neg); URINE OPIATE SCREEN NEGATIVE (Neg); URINE PHENCYCLIDINE SCREEN NEGATIVE (Neg)
--- NOTE | 2023-06-05 19:52 | NUR ---
Pt increased to [place] level 2 r/t 5490
[2023-06-05 19:54] LABS: BACTERIA,URINE NONE SEEN /HPF (Neg); MUCUS STRANDS NONE SEEN /LPF (Neg); RBC,URINE 0-2 /HPF (0-2); SQUAMOUS EPITHELIAL CELL,UR FEW /LPF (FEW); WBC,URINE NONE SEEN /HPF (0-4)
--- NOTE | 2023-06-05 21:42 | NUR ---
PT IS NOW RESTING IN THE [facility] IN ROOM 15 WITH A BLANKET AND THE LIGHTS OFF. PT DOES NOT APPEAR TO BE IN ANY DISTRESS AT THIS TIME.
--- NOTE | 2023-06-06 03:17 | NUR ---
PT HAS AWOKEN AND IS BEING COOPERATIVE WITH STAFF AT THIS TIME. LABS HAVE BEEN DRAWN AND COVID TEST COMPLETED. PT GIVEN ORANGE JUICE REQUESTED.
[2023-06-06 04:22] LABS: ALANINE AMINOTRANSFERASE 23 U/L (12-78); ALBUMIN 3.2 G/DL (3.4-5.0); ALBUMIN/GLOBULIN RATIO 0.7 (1.1-1.5); ALKALINE PHOSPHATASE 82 IU/L (46-116); ANION GAP 9 (8-16); ASPARTATE AMINO TRANSFERASE 20 U/L (10-37); BILIRUBIN,TOTAL 0.3 MG/DL (0.1-1.0); BLOOD UREA NITROGEN 22 MG/DL (7-18); BUN/CREATININE RATIO 7.7 (10.0-20.0); CALCIUM 9.4 MG/DL (8.5-10.1); CHLORIDE 116 MMOL/L (99-107); CREATININE 2.86 MG/DL (0.40-0.90); ETHANOL < 10 MG/DL (<10); GLUCOSE 85 MG/DL (70-104); POTASSIUM 4.1 MMOL/L (3.5-5.1); SODIUM 152 MMOL/L (135-145); TOTAL CARBON DIOXIDE 26.6 MMOL/L (24-32); TOTAL PROTEIN 7.5 G/DL (6.4-8.2); eCRCL 19 ML/MIN; eGFR 17 ML/MIN
[2023-06-06 04:27] LABS: BASOPHILS % (AUTO) 0.9 % (0-1); EOSINOPHILS # (AUTO) 0.1 X10'3 (0-0.9); EOSINOPHILS % (AUTO) 1.7 % (0-6); HEMATOCRIT 30.7 % (35.0-45.0); HEMOGLOBIN 9.5 g/dl (12.0-16.0); LYMPHOCYTES # (AUTO) 1.8 X10'3 (1.1-4.8); MEAN CORPUSCULAR HEMOGLOBIN 31.3 PG (27.0-31.0); MEAN CORPUSCULAR HGB CONC 30.9 g/dL (33.0-36.5); MEAN CORPUSCULAR VOLUME 101.2 FL (78-98); MEAN PLATELET VOLUME 8.7 FL (7.4-10.4); MONOCYTES # (AUTO) 0.4 X10'3 (0-0.9); MONOCYTES % (AUTO) 8.5 % (2-12); NEUTROPHILS # (AUTO) 2.8 X10'3 (1.8-7.7); NEUTROPHILS % (AUTO) 53.9 % (42-75); PLATELET COUNT 253 X10'3 (140-440); RED BLOOD COUNT 3.04 X10'6 (4.20-5.60); WHITE BLOOD COUNT 5.1 X10'3 (4.5-11.0)
[2023-06-06] MEDS ORDERED: dextrose 5%-water 1,000 ML IV ONE (04:35)
[2023-06-06] MEDS ORDERED: dextrose 5% water 500ml 500 ML IV ONE (04:55)
[2023-06-06] MEDS ORDERED: acetaminophen 325mg tablet PO ONE ×2 (09:55)
--- NOTE | 2023-06-06 14:26 | NUR ---
PT JUST GOT PLACED BACK HER IN OVERFLOW. PT IS UP TALKING, ASKING WHY SHE IS HERE. PT IS CALM AND COOPERATIVE AND IS BEING COMPLIANT.
--- NOTE | 2023-06-06 14:59 | NUR ---
PT IS SITTING UP IN BED EATING DEVONTE CRACKERS AND DRINKING JUICE. PT IS CALM AND COOPERATIVE.
--- NOTE | 2023-06-06 16:05 | NUR ---
PT KEEPS ASKING WHY SHE IS HERE. JULIANA GARCIA TALKED TO HER AND TOLD ME MULTIPLE TIMERS. I GRABBED THE TV FROM THE PREVIOUS PT THAT WAS D/C AND TURNED ON A MOVIE FOR HWER.
--- NOTE | 2023-06-06 16:46 | NUR ---
PT IS ASLEEP IN BED.
--- NOTE | 2023-06-06 17:42 | NUR ---
PT IS STILL ASLEEP IN BED. BREATHING EVEN AND UNLABORED.
--- NOTE | 2023-06-06 18:30 | NUR ---
Client is telling Tech "I shouldn't be here because I can organize my things." Clients' right hand is bandaged. Dinner tray was delivered. Client is focused on being discharged.
--- NOTE | 2023-06-06 19:00 | NUR ---
Reported 10/10 'throbbing pain' in right hand. 5 mg Hydrocodone Tab PO was ordered. Client ate 100% dinner tray, then went to the restroom.
[2023-06-06] MEDS ORDERED: HYDROcodone/acetaminophen 5mg/325mg tablet PO ONE (19:25)
--- NOTE | 2023-06-06 20:00 | NUR ---
Received 5 mg Hydrocodone. Resting on back. Resp even and unlabored.
--- NOTE | 2023-06-06 20:41 | NUR ---
Client perseverating about belongings list. Efren spoke with client regarding belongings. "Costume jewelry necklace" (this is clients' description) put with belongings. Necklace added to belonging inventory. Ambulated to restroom.
[2023-06-06] MEDS ORDERED: divalproex sod 250mg ER (24-hour) tablet PO SCH (21:00)
--- NOTE | 2023-06-07 01:13 | NUR ---
Resting with eye's closed. Resp even and unlabored.
--- NOTE | 2023-06-07 01:35 | NUR ---
Ambulated to restroom. Requested another pitcher of water. Client stated "Thank you! God Bless you!" Then asked for items from her belongings. Asked for her Lipstick, and was offered Chapstick. She emphatically stated "I can't use that stuff! It makes me sick! I threw up when I used it!" Efren Jeter LVN got clients lip gloss for her. Client was talkative and was encouraged to returned to bed. C/o pain in hand.
[2023-06-07] MEDS ORDERED: HYDROcodone/acetaminophen 5mg/325mg tablet PO ONE (01:50)
[2023-06-07] MEDS ORDERED: acetaminophen 325mg tablet PO PRN (02:40)
--- NOTE | 2023-06-07 03:20 | NUR ---
Resting in bed, eyes closed, resp even and unlabored.
--- NOTE | 2023-06-07 03:51 | NUR ---
Client woke up and called for Efren. She then asked "You didn't throw my stuff away did you?" "All my stuff is clean. My purse is clean. My clothes are clean." She continued to list all of her items that were 'clean'. Client was re-assured that her belongings were secure and encouraged to go back to sleep.
--- NOTE | 2023-06-07 04:59 | NUR ---
Ambulated to restroom.
--- NOTE | 2023-06-07 05:25 | NUR ---
Awake and talking.
--- NOTE | 2023-06-07 07:21 | NUR ---
Patient reclining in bed awake. No distress observed. Continue to monitor.
--- NOTE | 2023-06-07 08:25 | NUR ---
Patient is needy and comes up to nurses station every few minutes with something new to ask, change. Continue to monitor.
[2023-06-07] MEDS: atorvastatin 10mg tablet PO SCH (08:40)
[2023-06-07] MEDS: multivitamins, therapeutics tablet PO SCH (08:40)
[2023-06-07] MEDS: ARIPIPRAZOLE 10 MG TABLET PO SCH ×2 (08:40→20:22)
[2023-06-07] MEDS: linezolid 600mg tablet PO SCH ×2 (08:55→20:22)
[2023-06-07] MEDS: fenofibrate 145mg tablet PO SCH (08:55)
--- NOTE | 2023-06-07 12:10 | NUR ---
Patient eating lunch. No distress observed. Continue to monitor.
--- NOTE | 2023-06-07 15:00 | NUR ---
Patient advised she can only have 1 request an hour. Patient continues to ask for things every few minutes. Patient agreed. Continue with with plan of care.
--- NOTE | 2023-06-07 15:40 | NUR ---
Patient asking for another set of clothes because she got a dab of orange juice on her shirt. RN advised patient that she just got a new set of clothes 2 hours ago because she spilled a little something on her clothes. Her shirt does not look wet or soiled. Continue with the plan of care.
--- NOTE | 2023-06-07 17:08 | NUR ---
RN took picture of wound and used the wound marker. Patient is on antibiotics. Wound does not need to be changed tomorrow unless wound care nurse comes to look at it. Patient tolerated wound change well.
[2023-06-07] MEDS: HYDROcodone/acetaminophen 5mg/325mg tablet PO PRN (17:42)
--- NOTE | 2023-06-07 17:43 | NUR ---
Patient c/o 06/30 wound pain. Patient did not complain at all when RN cleaned and changed wound. Patient has been up to the nurses station 50 times today and never complained at pain. Patient states she has been in pain all day long...but never said a word. RN offered her Tylenol and patient stated that doesn't work. Patient wants the [place]. Continue with the plan of care.
--- NOTE | 2023-06-07 19:23 | NUR ---
Pt woke up yelling "nurse" she wanted new scrubs because her scrubs were dirty. Given new scrubs linen change per her request. Pt denies MH s/s. Angry because [facility] nurse said she was paranoid and delusional. Pt denies, pt wants to be discharged tomorrow, claims she has a nice place to live can take care of her own needs and has no problems with the neighbors. Pt has had a long history of believing her neighbors are trying to harm her. Likely she is minimizing her symptoms in order to go home tomorrow.
[2023-06-07] MEDS: divalproex sodium 500mg tablet.DR PO SCH (20:22)
--- NOTE | 2023-06-07 23:28 | NUR ---
Pt talked on the phone, was calm and cooperative with medication administration. Pt slept for a while then came up to nurse's station at 2300 very talkative. She was cooperative when informed she needed to return to bed. Is lying in bed quietly at this time.
[2023-06-08] MEDS: HYDROcodone/acetaminophen 5mg/325mg tablet PO PRN (01:15)
--- NOTE | 2023-06-08 02:02 | NUR ---
Pt awake about 0115 c/o pain. Given PRN [place] pt able to go back to sleep. Sleeping at this time.
--- NOTE | 2023-06-08 03:58 | NUR ---
Pt awake c/o pain in rt hand. Tylenol given, sun wrap loosened and hand elevated on pillow. Pt eyes closed appears to be going back to sleep.
--- NOTE | 2023-06-08 06:35 | NUR ---
Pt resting in bed with eyes closed, respirations equal and unlabored. No acute distress noted at this time.
--- NOTE | 2023-06-08 06:57 | NUR ---
Pt came up to nurses station and told this nurse that her "hand really hurts". I explained that its too early for me to give her any other pain meds, pt stated "no i dont want any medication I just want you to know". Pt then asked about breakfast and said that maybe eating will help her pain go away.
--- NOTE | 2023-06-08 07:49 | NUR ---
Pt up used the bathroom. No acute distress noted at this time.
--- NOTE | 2023-06-08 09:17 | NUR ---
Patient ambulatory on the unit. No distress observed. Continue to monitor.
[2023-06-08] MEDS: multivitamins, therapeutics tablet PO SCH (09:28)
[2023-06-08] MEDS: linezolid 600mg tablet PO SCH ×2 (09:28→20:10)
[2023-06-08] MEDS: atorvastatin 10mg tablet PO SCH (09:28)
[2023-06-08] MEDS: ARIPIPRAZOLE 10 MG TABLET PO SCH ×2 (09:29→20:10)
[2023-06-08] MEDS: fenofibrate 145mg tablet PO SCH (09:35)
--- NOTE | 2023-06-08 10:55 | NUR ---
Harpreet HINTON, meeting with patient. Patient is not happy with conversation. Continue with the plan of care.
--- NOTE | 2023-06-08 11:32 | NUR ---
Jorge fuller in [facility] - 06/08/23 at 1251 by JOLANTA Wound c
--- NOTE | 2023-06-08 11:32 | NUR ---
donor relations coordinator cleansing and changing wound care to right hand. Patient tolerated well. No distress observed. Continue with plan of care.
--- NOTE | 2023-06-08 12:11 | NUR ---
Patient eating lunch. No distress observed. Continue with the plan of care.
--- NOTE | 2023-06-08 15:25 | NUR ---
Patient's optimization manager was visiting patient. Once Apparel Merchandiser left patient stated she was useless since she couldn't release patient from the hold. Patient is not happy her 5150 was renewed.
--- NOTE | 2023-06-08 16:41 | NUR ---
Patient filled out a Writ of [place]. Patient advocate will tack picker tomorrow and file for patient.
[2023-06-08] MEDS: hydrOXYzine 25 MG tablet PO PRN (20:10)
[2023-06-08] MEDS: divalproex sodium 500mg tablet.DR PO SCH (20:11)
--- NOTE | 2023-06-08 20:21 | NUR ---
The patient has been resting on her bed after eating 100% of her dinner. She was pleasant. She was not able to state why she was on a 5150 and has no insight into her behavior that led back to be placed on a 5150 hold. She took her evening medications.
--- NOTE | 2023-06-08 21:00 | NUR ---
The patient is resting on her bed
[2023-06-08] MEDS: acetaminophen 325mg tablet PO PRN (21:51)
--- NOTE | 2023-06-08 23:24 | NUR ---
The patient appears to be sleeping
--- NOTE | 2023-06-09 03:02 | NUR ---
The patient appears to be sleeping
[2023-06-09] MEDS: acetaminophen 325mg tablet PO PRN ×3 (05:02→20:07)
--- NOTE | 2023-06-09 05:05 | NUR ---
The patient up to use the bathroom. She requested pain med, apple juice and crackers which were given to her.
--- NOTE | 2023-06-09 07:10 | NUR ---
Patient sleeping supine. Nonlabored respirations. No distress observed. Continue with plan of care. Writ of [facility] being filed today.
[2023-06-09] MEDS: linezolid 600mg tablet PO SCH ×2 (08:52→20:07)
[2023-06-09] MEDS: atorvastatin 10mg tablet PO SCH (08:52)
[2023-06-09] MEDS: ARIPIPRAZOLE 10 MG TABLET PO SCH ×2 (08:52→20:07)
[2023-06-09] MEDS: multivitamins, therapeutics tablet PO SCH (08:52)
--- NOTE | 2023-06-09 08:55 | NUR ---
[place], [facility] Patient advocate meeting with patient to take her Writ of [place] and file it with the court. [facility], Harpreet, advised. No distress observed. Continue with the plan of care.
[2023-06-09] MEDS: fenofibrate 145mg tablet PO SCH (10:28)
--- NOTE | 2023-06-09 11:19 | NUR ---
RN gave patient Tylenol for pain. Patient wanted a [place]. RN explained that the past 2 days she has gone all day with complaining of pain even when RN changed her wound dressing...and the next day when the wound care nurse changed her dressing...No Pain! Patient has been very communicative and was finally given boundries because she asks for multiple items several times an hour. But never once complained of pain or needing pain medication during the day shift. The night nurse had her [place] cancelled last night because she felt is was not needed. Patient appears to be drug seeking but only when she remembered she had [place] which wasn't until lieutenant shift supervisor and requested it.
--- NOTE | 2023-06-09 12:22 | NUR ---
Patient eating lunch. No distress observed. Continue to monitor.
--- NOTE | 2023-06-09 13:25 | NUR ---
Court Hearing 06/11 at 0830 via Skype per [facility] B[place], Patient's Rights advocate. Will advise patient when she awakens. Continue to monitor.
--- NOTE | 2023-06-09 15:17 | NUR ---
Patient chatting with RN at nurses station. No distress observed. Continue to monitor.
--- NOTE | 2023-06-09 17:10 | NUR ---
Patient eating dinner. No distress observed. Continue to monitor.
--- NOTE | 2023-06-09 19:00 | NUR ---
The patient is resting on her bed after eating dinner.
[2023-06-09] MEDS: divalproex sodium 500mg tablet.DR PO SCH (20:07)
[2023-06-09] MEDS: hydrOXYzine 25 MG tablet PO PRN (20:07)
--- NOTE | 2023-06-09 21:22 | NUR ---
The patient appears to be sleeping
--- NOTE | 2023-06-09 22:13 | NUR ---
The patient appears to be sleeping
--- NOTE | 2023-06-09 23:19 | NUR ---
The patient appears to be sleeping
--- NOTE | 2023-06-10 00:59 | NUR ---
Patient up to use the bathroom
[2023-06-10] MEDS: acetaminophen 325mg tablet PO PRN ×4 (01:45→20:03)
--- NOTE | 2023-06-10 02:20 | NUR ---
The patient appears to be sleeping
--- NOTE | 2023-06-10 03:22 | NUR ---
The patient appears to be sleeping
--- NOTE | 2023-06-10 05:01 | NUR ---
The patient appears to be sleeping
--- NOTE | 2023-06-10 06:30 | NUR ---
Pt is in bed, her eyes are closed and she appears to be sleeping. Respirations regular.
--- NOTE | 2023-06-10 07:51 | NUR ---
Pt ambulated to the bathroom.
[2023-06-10] MEDS: ARIPIPRAZOLE 10 MG TABLET PO SCH ×2 (08:17→20:03)
[2023-06-10] MEDS: multivitamins, therapeutics tablet PO SCH (08:17)
[2023-06-10] MEDS: linezolid 600mg tablet PO SCH ×2 (08:17→20:03)
[2023-06-10] MEDS: atorvastatin 10mg tablet PO SCH (08:17)
[2023-06-10] MEDS: fenofibrate 145mg tablet PO SCH (08:17)
--- NOTE | 2023-06-10 08:29 | NUR ---
Pt ate her breakfast, pt was cooperative with her medications. Pt c/o 5/10 right hand pain and was medicated with PRN Tylenol 650 mg at 0818.
--- NOTE | 2023-06-10 10:24 | NUR ---
Pt is lying in bed on her left side, respirations regular, she appears to be sleeping.
--- NOTE | 2023-06-10 10:36 | NUR ---
Pt ambulated to the bathroom.
--- NOTE | 2023-06-10 11:52 | NUR ---
Changed dressing right hand per wound care orders, pt tolerated well.
--- NOTE | 2023-06-10 13:22 | NUR ---
Pt is lying in bed on her back. She appears to be napping.
--- NOTE | 2023-06-10 14:37 | NUR ---
Pt c/o 5/10 generalized pain and was given PRN Tylenol 650 mg. Pt asked for a warm blanket and to be covered up. Pt is quietly lying in bed.
--- NOTE | 2023-06-10 16:35 | NUR ---
Pt is lying in bed, appears to be sleeping, respirations regular.
--- NOTE | 2023-06-10 17:28 | NUR ---
Pt is sitting in her room eating her dinner.
[2023-06-10] MEDS: divalproex sodium 500mg tablet.DR PO SCH (20:03)
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
--- NOTE | 2023-06-10 20:44 | NUR ---
The patient appears to be sleeping
--- NOTE | 2023-06-10 22:56 | NUR ---
The patient appears to be sleeping
--- NOTE | 2023-06-11 00:59 | NUR ---
The patient up briefly to use the bathroom
--- NOTE | 2023-06-11 02:58 | NUR ---
The patient appears to be sleeping
--- NOTE | 2023-06-11 05:05 | NUR ---
The patient is resting on her bed.
--- NOTE | 2023-06-11 06:25 | NUR ---
[employer] called to request that nurse's notes, vital signs, and meal % for the past 24 hours be faxed over to them.
--- NOTE | 2023-06-11 07:03 | NUR ---
tech faxed Antoni Aguillon requested items, vital signs, nurse notes, and meal intakes for the last 24 hours.
--- NOTE | 2023-06-11 08:14 | NUR ---
The public speaking teacher is here speaking with pt at bedside.
--- NOTE | 2023-06-11 08:28 | NUR ---
Pt is in room 27 for her Writ hearing via zoom.
--- NOTE | 2023-06-11 09:00 | NUR ---
Pt won her writ hearing.
[2023-06-11] MEDS: multivitamins, therapeutics tablet PO SCH (09:01)
[2023-06-11] MEDS: fenofibrate 145mg tablet PO SCH (09:02)
[2023-06-11] MEDS: acetaminophen 325mg tablet PO PRN (09:02)
[2023-06-11] MEDS: ARIPIPRAZOLE 10 MG TABLET PO SCH (09:02)
[2023-06-11] MEDS: atorvastatin 10mg tablet PO SCH (09:02)
[2023-06-11] MEDS: linezolid 600mg tablet PO SCH (09:02)
--- NOTE | 2023-06-11 09:48 | NUR ---
Tech called cab to transport pt home.
--- NOTE | 2023-06-11 10:04 | NUR ---
Pt discharged home, ambulated off the unit out to cab accompanied by security. All belongings returned.
[2023-06-11 10:06] VITALS: BP 146/100; PULSE 88; RESP 16; TEMP 98.1; O2SAT 100
== END 2023-06-11 10:04 | disposition home or self-care (01) ==
LOC: ER 16:35
DX: L03.113 Cellulitis of right upper limb (principal); Z20.822 Contact with and (suspected) exposure to COVID-19; R45.1 Restlessness and agitation; Z73.6 Limitation of activities due to disability; F31.9 Bipolar disorder, unspecified; F20.9 Schizophrenia, unspecified; Z56.0 Unemployment, unspecified; Z90.710 Acquired absence of both cervix and uterus; Z88.0 Allergy status to penicillin; Z88.1 Allergy status to other antibiotic agents; Z88.5 Allergy status to narcotic agent; Z79.899 Other long term (current) drug therapy
CPT/HCPCS: 36415; 80053; 80305; 80320; 81001; 85025; 87811; 96372; 99285; J1200; J1630; J2060; J7060

== ENCOUNTER 2023-07-29 17:21 | Emergency (ER) | payer MEDICAID ==
[~2023-07-29] VITALS: Ht 172.7 cm; Wt 65.0 kg
[2023-07-29 18:13] LABS: ALANINE AMINOTRANSFERASE 25 U/L (12-78); ALBUMIN 3.7 G/DL (3.4-5.0); ALBUMIN/GLOBULIN RATIO 0.8 (1.1-1.5); ALKALINE PHOSPHATASE 114 IU/L (46-116); ANION GAP 10 (8-16); ASPARTATE AMINO TRANSFERASE 29 U/L (10-37); BILIRUBIN,TOTAL 0.4 MG/DL (0.1-1.0); BLOOD UREA NITROGEN 27 MG/DL (7-18); BUN/CREATININE RATIO 10.2 (10.0-20.0); CALCIUM 11.1 MG/DL (8.5-10.1); CHLORIDE 106 MMOL/L (99-107); CREATININE 2.64 MG/DL (0.40-0.90); ETHANOL < 10 MG/DL (<10); GLUCOSE 93 MG/DL (70-104); SODIUM 142 MMOL/L (135-145); THYROID STIMULATING HORMONE 2.61 ulU/ml (0.34-4.50); TOTAL CARBON DIOXIDE 26.5 MMOL/L (24-32); TOTAL PROTEIN 8.3 G/DL (6.4-8.2); eCRCL 23 ML/MIN; eGFR 18 ML/MIN
[2023-07-29 18:21] LABS: POTASSIUM 4.9 MMOL/L (3.5-5.1)
[2023-07-29 18:28] LABS: BASOPHILS % (AUTO) 0.5 % (0-1); EOSINOPHILS # (AUTO) 0.1 X10'3 (0-0.9); HEMATOCRIT 31.7 % (35.0-45.0); HEMOGLOBIN 10.5 g/dl (12.0-16.0); LYMPHOCYTES # (AUTO) 2.5 X10'3 (1.1-4.8); MEAN CORPUSCULAR HEMOGLOBIN 30.9 PG (27.0-31.0); MEAN CORPUSCULAR VOLUME 93.5 FL (78-98); MEAN PLATELET VOLUME 9.7 FL (7.4-10.4); MONOCYTES # (AUTO) 0.4 X10'3 (0-0.9); MONOCYTES % (AUTO) 6.4 % (2-12); NEUTROPHILS # (AUTO) 3.1 X10'3 (1.8-7.7); NEUTROPHILS % (AUTO) 50.1 % (42-75); PLATELET COUNT 176 X10'3 (140-440); RED BLOOD COUNT 3.39 X10'6 (4.20-5.60); RED CELL DISTRIBUTION WIDTH 16.4 % (11.5-14.5); WHITE BLOOD COUNT 6.2 X10'3 (4.5-11.0)
[2023-07-29 19:23] VITALS: BP 116/83; PULSE 80; RESP 20; TEMP 98.7; O2SAT 98
[2023-07-29] MEDS ORDERED: ziprasidone IM 20mg inj **IM only IM ONE (20:55)
[2023-07-30 03:08] LABS: URINE HCG NEGATIVE (NEG)
[2023-07-30 03:19] LABS: BILIRUBIN,URINE NEGATIVE (Neg); CLARITY,URINE CLEAR (Clear); COLOR,URINE YELLOW (Yellow); GLUCOSE, URINE NEGATIVE (Neg); KETONES,URINE NEGATIVE (Neg); LEUKOCYTE ESTERASE ,URINE TRACE (Neg); NITRITES, URINE NEGATIVE (Neg); OCCULT BLOOD,URINE NEGATIVE (Neg); PROTEIN,URINE NEGATIVE (Neg); URINE AMPHETAMINE SCREEN NEGATIVE (Neg); URINE BARBITUATE SCREEN NEGATIVE (Neg); URINE BENZODIAZEPINES SCREEN NEGATIVE (Neg); URINE CANNABINOID SCREEN NEGATIVE (Neg); URINE COCAINE SCREEN NEGATIVE (Neg); URINE METHADONE SCREEN NEGATIVE (Neg); URINE OPIATE SCREEN NEGATIVE (Neg); URINE PHENCYCLIDINE SCREEN NEGATIVE (Neg); UROBILINOGEN,URINE 0.2 E.U/dL (0.2-1.0)
[2023-07-30 03:30] LABS: UA COLLECTION TYPE VOIDED
[2023-07-30 03:31] LABS: MUCUS STRANDS NONE SEEN /LPF (Neg); SQUAMOUS EPITHELIAL CELL,UR FEW /LPF (FEW); TRANSITIONAL EPI CELLS,URINE FEW /HPF
[2023-07-30 03:32] LABS: BACTERIA,URINE FEW /HPF (Neg); RBC,URINE 0-2 /HPF (0-2); WBC,URINE 0-4 /HPF (0-4)
--- NOTE | 2023-07-30 07:14 | NUR ---
Patient moved to bed 22 from [facility]. She remained asleep on her bed.
--- NOTE | 2023-07-30 07:57 | NUR ---
Patient eating breakfast meal. Denies needs.
--- NOTE | 2023-07-30 09:10 | NUR ---
[facility] FAXED.
--- NOTE | 2023-07-30 09:25 | NUR ---
The patient appears to be sleeping. No s/sx of distress.
--- NOTE | 2023-07-30 11:22 | NUR ---
The patient appears to be sleeping. No s/sx of distress.
--- NOTE | 2023-07-30 14:06 | NUR ---
Received call from CASSIDY Quezada at [facility]. Will call back if accepted.
[2023-07-30] MEDS ORDERED: DIVA500T9 (15:01)
[2023-07-30] MEDS ORDERED: HYDR-3965 (15:01)
[2023-07-30] MEDS ORDERED: ONDA-103 PO (15:01)
[2023-07-30] MEDS ORDERED: ATOR10TA70 PO (15:01)
[2023-07-30] MEDS ORDERED: ARIP10TA57 (15:01)
--- NOTE | 2023-07-30 15:13 | NUR ---
Patient appears to be asleep. RR even and unlabored. No s/sx of distress
[2023-07-30] MEDS ORDERED: acetaminophen 325mg tablet PO PRN (15:20)
[2023-07-30] MEDS ORDERED: HYDROcodone/acetaminophen 5mg/325mg tablet PO PRN (15:45)
[2023-07-30] MEDS ORDERED: non-formulary drug (Acetaminophen (Acetaminophen Extra Strength) 1 TAB) PO PRN (15:45)
[2023-07-30] MEDS ORDERED: ondansetron 4mg rapidly disintigrating tab PO PRN (15:45)
[2023-07-30] MEDS ORDERED: hydrOXYzine 25 MG tablet PO PRN (15:45)
[2023-07-30] MEDS ORDERED: ARIPIPRAZOLE 10 MG TABLET PO SCH (20:00)
[2023-07-30] MEDS ORDERED: linezolid 600mg tablet PO SCH (20:00)
[2023-07-30] MEDS ORDERED: divalproex sod 250mg ER (24-hour) tablet PO SCH (21:00)
[2023-07-31] MEDS ORDERED: atorvastatin 10mg tablet PO SCH ×2 (08:00)
[2023-07-31] MEDS ORDERED: multivitamins, therapeutics tablet PO SCH (08:00)
[2023-07-31] MEDS ORDERED: fenofibrate 145mg tablet PO SCH (08:30)
== END 2023-07-30 18:25 | disposition still patient (30) ==
LOC: ER 17:22
DX: F31.9 Bipolar disorder, unspecified (principal); Z20.822 Contact with and (suspected) exposure to COVID-19; F41.9 Anxiety disorder, unspecified; F20.9 Schizophrenia, unspecified; Z74.9 Problem related to care provider dependency, unspecified; Z88.0 Allergy status to penicillin; Z88.1 Allergy status to other antibiotic agents; Z88.5 Allergy status to narcotic agent; Z56.0 Unemployment, unspecified; Z90.710 Acquired absence of both cervix and uterus; Z79.899 Other long term (current) drug therapy
CPT/HCPCS: 36415; 80053; 80305; 80320; 81001; 81025; 84443; 85025; 87811; 96372; 99285; J3486